=== PATIENT | male | born 1985 | race Hispanic/Latino ===

== ENCOUNTER 2018-05-10 23:03 | Emergency (ER) | payer BC, SELFPAY ==
[2018-05-11 00:25] LABS: Absolute Lymphocytes (CBC) 2.2 K/uL (0.7-4.9); Absolute Neutrophil 8.2 K/uL (1.8-8.0); Basophils % 0.3 % (0-1.3); Eosinophils % 1.8 % (0-4.4); Hematocrit 39.6 % (39.6-49.0); Lymphocytes % 18.6 % (15.3-44.8); MCH 30.5 pg (27.0-35.0); MCV 87.9 fL (80-100); MPV 9.1 fL (7.6-11.3); Monocytes % 8.9 % (3.3-12.3); RBC Red Blood Cell Count 4.51 M/uL (4.33-5.43)
[2018-05-11 00:27] LABS: Urine Blood NEGATIVE (NEG); Urine Glucose NEGATIVE (NEG); Urine Protein NEGATIVE (NEG)
[2018-05-11 00:42] LABS: ALT/SGPT 26 U/L (12-78); AST/SGOT 17 U/L (15-37); Albumin 3.4 g/dL (3.4-5.0); Alkaline Phosphatase 80 U/L (45-117); BUN Blood Urea Nitrogen 13 mg/dL (7-18); Bicarbonate 26 mmol/L (21-32); Bilirubin Direct 0.1 mg/dL (0-0.2); Bilirubin Total 0.5 mg/dL (0.2-1.0); Glucose Level 95 mg/dL (74-106); Potassium 3.7 mmol/L (3.5-5.1); Protein, Total 7.6 g/dL (6.4-8.2); Sodium Level 140 mmol/L (136-145); Troponin (Emerg Dept Use Only) < 0.02 ng/mL (0.0-0.045)
--- NOTE | 2018-05-11 00:51 | ER ---
Nurse's Notes [facility] Name: Tom Saez Age: 32 yrs Sex: Male : 1985 Arrival Date: 05/10/2018 Time: 23:06 Bed 13 Private MD: Monae Gallardo H Diagnosis: Other viral warts-right 5th finger, vega;Carpal tunnel syndrome;Carpal tunnel syndrome, right upper limb Presentation: 05/10 23:10 Presenting complaint: Patient states: large wart to right pinkie finger, started tl3 bleeding on Halloween night, used compression to stop bleeding then started putting wart strips on it, has been putting compound W on it all week, now feels tingling, states that wart has only been there for one month. Transition of care: patient was not received from another setting of care. Onset of symptoms is unknown. Risk Assessment: Do you want to hurt yourself or someone else? Patient reports no desire to harm self or others. Initial Sepsis Screen: Does the patient meet any 2 criteria? No. Patient's initial sepsis screen is negative. Does the patient have a suspected source of infection? No. Patient's initial sepsis screen is negative. Care prior to arrival: None. 23:10 Method Of Arrival: Ambulatory tl3 23:10 Acuity: APOLLO 4 tl3 Triage Assessment: 23:10 General: Appears in no apparent distress. Behavior is calm, cooperative, appropriate tl3 for age. Pain: Complains of pain in palmar aspect of middle phalanx of right little finger Pain currently is 7 out of 10 on a pain scale. Historical: - Allergies: 23:09 No Known Allergies; tl3 - PSHx: 23:09 None; tl3 - Immunization history:: Adult Immunizations up to date, Adult Immunizations Flu vaccine is up to date. - Social history:: Smoking status: Patient/guardian denies using tobacco, never smoked. - Ebola Screening: : No symptoms or risks identified at this time. - Family history:: not pertinent. Screenin:20 Abuse screen: Denies threats or abuse. Denies injuries from another. Nutritional cc3 screening: No deficits noted. Tuberculosis screening: No symptoms or risk factors identified. Fall Risk Ambulatory Aid- None/Bed Rest/Nurse Assist (0 pts). Gait- Normal/Bed Rest/Wheelchair (0 pts) Mental Status- Oriented to own ability (0 pts). Assessment: 23:20 General: see triage assessment. cc3 05/11 00:25 Reassessment: Splint applied on the right wrist as ordered, patient tolerated. cc3 00:50 Reassessment: Patient appears in no apparent distress at this time. Patient and/or cc3 family updated on plan of care and expected duration. Pain level reassessed. Patient is alert, oriented x 3, equal unlabored respirations, skin warm/dry/pink. Patient came back from CT scan department. 01:10 Reassessment: Patient appears in no apparent distress at this time. Patient and/or cc3 family updated on plan of care and expected duration. Pain level reassessed. Patient is alert, oriented x 3, equal unlabored respirations, skin warm/dry/pink. Dr. Allen discharged the patient with prescriptions and discharge instructions given. IV cannula removed and patient left ER vitally stable and ambulatory with his family. Vital Signs: 05/10 23:10 BP 132 / 87; Pulse 86; Resp 18; Temp 97.6(O); Pulse Ox 98% ; Weight 131.54 kg; Height 5 tl3 ft. 5 in. (165.10 cm); 05/11 00:20 BP 120 / 81; Pulse 83; Resp 19 S; Pulse Ox 98% on R/A; cc3 01:00 BP 122 / 84; Pulse 85; Resp 18 S; Pulse Ox 98% on R/A; cc3 05/10 23:10 Body Mass Index 48.26 (131.54 kg, 165.10 cm) tl3 ED Course: 05/10 23:06 Patient arrived in ED. am2 23:06 Monae Gallardo DO is Private Physician. am2 23:14 Triage completed. tl3 23:20 Arm band placed on right wrist. cc3 23:20 Patient has correct armband on for positive identification. Bed in low position. Call cc3 light in reach. Side rails up X 1. night monitor on. Pulse ox on. NIBP on. 23:28 Luis Angel Allen MD is Attending Physician. [facility] 23:46 Nati Whitley is Primary Nurse. cc3 23:55 Inserted saline lock: 20 gauge in left antecubital area, using aseptic technique. Blood cc3 collected. 1106 00:17 X-ray completed. Portable x-ray completed in exam room. Patient tolerated procedure kw well. 00:18 XRAY Chest (1 view) In Process Unspecified. EDMS 00:[address] via wheelchair. kw1 00:44 CT Head C Spine In Process Unspecified. EDMS 00:45 CT completed. Patient tolerated procedure well. Patient moved back from CT. kw1 00:49 Monae Gallardo DO is Referral Physician. dory 01:10 No provider procedures requiring assistance completed. IV discontinued, intact, cc3 bleeding controlled, No redness/swelling at site. Pressure dressing applied. Administered Medications: No medications were administered Outcome: 00:50 Discharge ordered by . dory 01:10 Discharged to home ambulatory, with family. cc3 01:10 Condition: stable 01:10 Discharge instructions given to patient, family, Instructed on discharge instructions, follow up and referral plans. medication usage, Demonstrated understanding of instructions, follow-up care, medications, Prescriptions given X 2. 01:13 Patient left the ED. cc3 Signatures: Dispatcher [employer] Luis Angel Sellers MD MD cha Whitley, Kimberlee kw Moreno, Amanda am2 Wilhelm, Kimberly kw1 Mary Calderon, MC RN tl3 Nati Whitley cc3
--- NOTE | 2018-05-11 00:51 | EDPHYS ---
Physician Documentation [facility] Name: Tom Saez Age: 32 yrs Sex: Male : 1985 Arrival Date: 05/10/2018 Time: 23:06 Bed 13 Private MD: Monae Gallardo H ED Physician Luis Angel Allen HPI: 05/10 23:42 This 32 yrs old Male presents to ER via Ambulatory with complaints of Finger dory pain/wart. 23:42 The patient or guardian complains of pain. The complaints affect the right bicep, dory dorsal aspect of right forearm, right tricep and palmar aspect of right forearm. Context: The problem was sustained at home. Onset: The symptoms/episode began/occurred 2 day(s) ago. Modifying factors: The symptoms are alleviated by nothing. the symptoms are aggravated by nothing. Associated signs and symptoms: The patient has no apparent associated signs or symptoms. Historical: - Allergies: 23:09 No Known Allergies; tl3 - PSHx: 23:09 None; tl3 - Immunization history:: Adult Immunizations up to date, Adult Immunizations Flu vaccine is up to date. - Social history:: Smoking status: Patient/guardian denies using tobacco, never smoked. - Ebola Screening: : No symptoms or risks identified at this time. - Family history:: not pertinent. ROS: 23:42 Constitutional: Negative for fever, chills, and weight loss, Eyes: Negative for injury, dory pain, redness, and discharge, ENT: Negative for injury, pain, and discharge, Neck: Negative for injury, pain, and swelling, Cardiovascular: Negative for chest pain, palpitations, and edema, Respiratory: Negative for shortness of breath, cough, wheezing, and pleuritic chest pain, Abdomen/GI: Negative for abdominal pain, nausea, vomiting, diarrhea, and constipation, Back: Negative for injury and pain, : Negative for injury, bleeding, discharge, and swelling, MS/Extremity: Negative for injury and deformity, Psych: Negative for depression, anxiety, suicide ideation, homicidal ideation, and hallucinations, Allergy/Immunology: Negative for hives, rash, and allergies, Endocrine: Negative for neck swelling, polydipsia, polyuria, polyphagia, and marked weight changes, Hematologic/Lymphatic: Negative for swollen nodes, abnormal bleeding, and unusual bruising. 23:42 Skin: Positive for wart right finger. 23:42 Neuro: Positive for tingling, of the right arm. Exam: 23:42 Constitutional: This is a well developed, well nourished patient who is awake, alert, dory and in no acute distress. Head/Face: Normocephalic, atraumatic. Eyes: Pupils equal round and reactive to light, extra-ocular motions intact. Lids and lashes normal. Conjunctiva and sclera are non-icteric and not injected. Cornea within normal limits. Periorbital areas with no swelling, redness, or edema. ENT: Nares patent. No nasal discharge, no septal abnormalities noted. Tympanic membranes are normal and external auditory canals are clear. Oropharynx with no redness, swelling, or masses, exudates, or evidence of obstruction, uvula midline. Mucous membranes moist. Neck: Trachea midline, no thyromegaly or masses palpated, and no cervical lymphadenopathy. Supple, full range of motion without nuchal rigidity, or vertebral point tenderness. No Meningismus. Chest/axilla: Normal chest wall appearance and motion. Nontender with no deformity. No lesions are appreciated. Cardiovascular: Regular rate and rhythm with a normal S1 and S2. No gallops, murmurs, or rubs. Normal PMI, no JVD. No pulse deficits. Respiratory: Lungs have equal breath sounds bilaterally, clear to auscultation and percussion. No rales, rhonchi or wheezes noted. No increased work of breathing, no retractions or nasal flaring. Abdomen/GI: Soft, non-tender, with normal bowel sounds. No distension or tympany. No guarding or rebound. No evidence of tenderness throughout. Back: No spinal tenderness. No costovertebral tenderness. Full range of motion. Male : Normal genitalia with no discharge or lesions. Skin: Warm, dry with normal turgor. Normal color with no rashes, no lesions, and no evidence of cellulitis. MS/ Extremity: Pulses equal, no cyanosis. Neurovascular intact. Full, normal range of motion. Neuro: Awake and alert, GCS 15, oriented to person, place, time, and situation. Cranial nerves II-XII grossly intact. Motor strength 5/5 in all extremities. Sensory grossly intact. Cerebellar exam normal. Normal gait. Psych: Awake, alert, with orientation to person, place and time. Behavior, mood, and affect are within normal limits. Vital Signs: 23:10 BP 132 / 87; Pulse 86; Resp 18; Temp 97.6(O); Pulse Ox 98% ; Weight 131.54 kg; Height 5 tl3 ft. 5 in. (165.10 cm); 05/11 00:20 BP 120 / 81; Pulse 83; Resp 19 S; Pulse Ox 98% on R/A; cc3 01:00 BP 122 / 84; Pulse 85; Resp 18 S; Pulse Ox 98% on R/A; cc3 05/10 23:10 Body Mass Index 48.26 (131.54 kg, 165.10 cm) tl3 MDM: 05/10 23:28 Patient medically screened. [facility] 23:44 Data reviewed: vital signs, nurses notes, lab test result(s), EKG, radiologic studies, dory plain films. 05/10 23:42 Order name: Basic Metabolic Panel; Complete Time: 00:49 [facility] 05/10 23:42 Order name: CBC with Diff; Complete Time: 00:49 [facility] 05/10 23:42 Order name: LFT's; Complete Time: 00:49 [facility] 05/10 23:42 Order name: Magnesium; Complete Time: 00:49 [facility] 05/10 23:42 Order name: Troponin (emerg Dept Use Only); Complete Time: 00:49 [facility] 05/11 00:21 Order name: Urine Dipstick--Ancillary (enter results); Complete Time: 00:49 nd 05/10 23:42 Order name: EKG; Complete Time: 23:42 [facility] 05/10 23:42 Order name: EKG - Nurse/Tech; Complete Time: 00:26 [facility] 05/10 23:42 Order name: XRAY Chest (1 view) [facility] 05/10 23:42 Order name: Cardiac monitoring; Complete Time: 23:47 [facility] 05/10 23:42 Order name: IV Saline Lock; Complete Time: 00:25 [facility] 05/10 23:42 Order name: Labs collected and sent; Complete Time: 00:25 [facility] 05/10 23:42 Order name: O2 Per Protocol; Complete Time: 23:47 [facility] 05/10 23:42 Order name: CT Head C Spine [facility] 05/10 23:42 Order name: O2 Sat Monitoring; Complete Time: 23:47 [facility] 05/10 23:42 Order name: Urine Dipstick-Ancillary (obtain specimen); Complete Time: 00:25 [facility] 05/10 23:46 Order name: Splint - Wrist: cock up split; Complete Time: 00:25 [facility] Administered Medications: No medications were administered Disposition: 05/11/18 00:50 Discharged to Home. Impression: Other viral warts - right 5th finger, vega, Carpal tunnel syndrome, Carpal tunnel syndrome, right upper limb. - Condition is Stable. - Discharge Instructions: Carpal Tunnel Syndrome, Warts, Warts, [id number], Carpal Tunnel Syndrome, [id number]. - Prescriptions for Ibuprofen 600 mg Oral Tablet - take 1 tablet by ORAL route every 8 hours As needed take with food; 20 tablet. Tylenol- Codeine #3 300-30 mg Oral Tablet - take 2 tablets by ORAL route every 6 hours As needed; 20 tablet. - Medication Reconciliation Form, Thank You Letter, Antibiotic Education, Prescription Opioid Use form. - Follow up: Monae Gallardo; When: 2 - 3 days; Reason: Recheck today's complaints, Continuance of care, Re-evaluation by your physician. - Problem is new. - Symptoms have improved. Signatures: Dispatcher [employer] EDMS Luis Angel Allen MD MD cha Lowrey, Tammy, RN RN tl3 Nati Whitley cc3 Corrections: (The following items were deleted from the chart) 05/11 01:13 00:50 05/11/2018 00:50 Discharged to Home. Impression: Other viral warts - right 5th cc3 finger, vega; Carpal tunnel syndrome; Carpal tunnel syndrome, right upper limb. Condition is Stable. Discharge Instructions: Carpal Tunnel Syndrome, Warts, Warts, [id number], Carpal Tunnel Syndrome, [id number]. Prescriptions for Ibuprofen 600 mg Oral Tablet - take 1 tablet by ORAL route every 8 hours As needed take with food; 20 tablet, Tylenol-Codeine #3 300-30 mg Oral Tablet - take 2 tablets by ORAL route every 6 hours As needed; 20 tablet. and Forms are Medication Reconciliation Form, Thank You Letter, Antibiotic Education, Prescription Opioid Use. Follow up: Monae Gallardo; When: 2 - 3 days; Reason: Recheck today's complaints, Continuance of care, Re-evaluation by your physician. Problem is new. Symptoms have improved. dory
--- NOTE | 2018-05-11 06:47 | RAD REPORT ---
EXAM DESCRIPTION: CT - [id number] - 05/11/2018 4:14 am CLINICAL HISTORY: Right upper extremity numbness and tingling, neck pain A preliminary report was provided at the time of the study and reviewed prior to final report. COMPARISON: None. TECHNIQUE: Axial 5 mm thick images of the head were obtained. Axial 2 mm thick images of the cervic al spine were obtained with sagittal and coronal reconstruction images generated and reviewed. All CT scans are performed using dose optimization technique as appropriate and may include automated exposure control or mA/KV adjustment according to patient size. FINDINGS: No intracranial hemorrhage, mass, edema or acute intracranial finding. No suspicion for acute infarct ion. No extra-axial fluid collections. Mastoid air cells and paranasal sinuses are clear. No globe or orbit abnormality seen. Cervical body height and alignment are normal. No disk space narrowing. No fracture or acute bony abn ormality. No paraspinal mass or hematoma. IMPRESSION: Negative CT head examination for acute or significant finding. Negative CT cervical spine examination for acute or significant finding.
--- NOTE | 2018-05-11 08:46 | RAD REPORT ---
EXAM DESCRIPTION: RAD - Chest Single View - 05/11/2018 12:19 am CLINICAL HISTORY: Cough COMPARISON: April 02 TECHNIQUE: AP portable chest image was obtained 0010 hours . FINDINGS: No focal lung parenchymal process. Heart size and central vasculature have increased fract ionally from the prior study. Trachea is midline. No measurable pleural effusion and no pneumothorax. No acute bony abnormality seen. No acute aortic findings suspected. IMPRESSION: No focal mass or consolidation. Slight increase in central vasculature and heart size since April 02. Change is minimal but patie nt can be monitored for failure/ volume overload.
--- NOTE | 2018-05-11 12:19 | EKG ---
Test Date: 2018-05-11 Test Time: 00:03:00 Senior Lead Project Manager: DOLLY MEASUREMENT RESULTS: Intervals: Rate: 80 HI: 142 QRSD: 100 QT: 376 QTc: 433 Rueter: P: 17 HI: 142 QRS: 10 T: 15 INTERPRETIVE STATEMENTS: Normal sinus rhythm Normal ECG Compared to ECG 04/02/2016 17:11:53 No significant changes Electronically Signed On 05-11-18 12:17:54 STRUCTURAL DESIGN ENGINEER by Vamsi Holly
== END 2018-05-11 01:13 | disposition home or self-care (01) ==
LOC: ER 23:03
DX: G56.01 Carpal tunnel syndrome, right upper limb (principal); B07.8 Other viral warts
CPT/HCPCS: 36415; 70450; 71045; 72125; 80048; 80076; 81003; 83735; 84484; 85025; 93005; 99285

== ENCOUNTER 2019-01-11 13:54 | Inpatient (IN) | payer SELFPAY ==
[2019-01-11 15:21] LABS: Absolute Lymphocytes (CBC) 1.2 K/uL (0.7-4.9); Basophils % 0.4 % (0-1.3); Eosinophils % 0.1 % (0-4.4); Hematocrit 42.4 % (39.6-49.0); Lymphocytes % 13.4 % (15.3-44.8); MPV 8.2 fL (7.6-11.3); Monocytes % 7.1 % (3.3-12.3); RBC Red Blood Cell Count 4.82 M/uL (4.33-5.43)
[2019-01-11 15:34] LABS: Protime INR 1.23
[2019-01-11 15:53] LABS: ALT/SGPT 31 U/L (12-78); AST/SGOT 18 U/L (15-37); Albumin 3.2 g/dL (3.4-5.0); Alkaline Phosphatase 76 U/L (45-117); BUN Blood Urea Nitrogen 9 mg/dL (7-18); Bicarbonate 25 mmol/L (21-32); Bilirubin Direct < 0.1 mg/dL (0-0.2); Bilirubin Total 0.2 mg/dL (0.2-1.0); Glucose Level 107 mg/dL (74-106); Lipase 5277 U/L (73-393); Potassium 3.8 mmol/L (3.5-5.1); Protein, Total 7.8 g/dL (6.4-8.2); Sodium Level 139 mmol/L (136-145)
[2019-01-11] MEDS ORDERED: MORPHINE 4 MG/ML SYR ONE (16:43)
[2019-01-11] MEDS ORDERED: NA CHLORIDE 0.9% 1,000 ML ONE ×3 (16:43→20:17)
[2019-01-11] MEDS ORDERED: ONDANSETRON 4 MG/2 ML VIAL ONE (16:43)
--- NOTE | 2019-01-11 18:13 | RAD REPORT ---
EXAM DESCRIPTION: CT - Abdomen Pelvis W Contrast - 01/11/2019 6:03 pm CLINICAL HISTORY: Abdominal pain, diarrhea COMPARISON: None. TECHNIQUE: Biphasic, helical CT imaging of the abdomen and pelvis was performed following 100 ml non -ionic IV contrast. Oral contrast was given. All CT scans are performed using dose optimization technique as appropriate and may include automated exposure control or mA/KV adjustment according to patient size. FINDINGS: No suspicious findings in the lung bases. Liver shows fatty infiltration pattern. No focal liver abnormality. Spleen and pancreas unremarkable. Gallbladder and biliary tree are also without suspicious finding. Symmetric renal function is seen with no hydronephrosis or suspicious renal mass. No pyelonephritis o r acute parenchymal process. No bladder abnormalities. No adrenal abnormalities. No gastric dilatation or gastric wall thickening. No small bowel abnormality. The appendix is normal. Gudino of the colon are mildly prominent. There is a minimal amount of stranding in the fatty tissues adjacent to the redundant sigmoid colon. No free air, free fluid or pneumatosis. No hernia, mass o r bulky lymphadenopathy. Small nonspecific mesenteric lymph nodes present. No suspicious bony findings. IMPRESSION: Mild nonspecific colitis pattern. A few small mesenteric lymph nodes are present. No obstruction, free air or surgically emergent finding.
[2019-01-11 19:11] LABS: Urine Blood NEGATIVE (NEG); Urine Glucose NEGATIVE (NEG); Urine Protein NEGATIVE (NEG); Urine Specific Gravity 1.015 (1.005-1.030); Urine pH 5.5 (5.0-7.0)
--- NOTE | 2019-01-11 19:19 | ER ---
Nurse's Notes [facility] Name: Tom Saez Age: 33 yrs Sex: Male : 1985 Arrival Date: 01/11/2019 Time: 13:57 Bed 18 Private MD: Monae Gallardo H Diagnosis: Colitis;Acute pancreatitis Presentation: 01/11 14:01 Presenting complaint: Patient states: DIFFUSE ABDOMINAL PAIN AND DIARRHEA x3 DAYS. bp Transition of care: patient was not received from another setting of care. Onset of symptoms is unknown. Risk Assessment: Do you want to hurt yourself or someone else? Patient reports no desire to harm self or others. Initial Sepsis Screen: Does the patient meet any 2 criteria? HR > 90 bpm. No. Patient's initial sepsis screen is negative. Does the patient have a suspected source of infection? No. Patient's initial sepsis screen is negative. Care prior to arrival: None. 14:01 Method Of Arrival: Ambulatory bp 14:01 Acuity: APOLLO 3 bp Historical: - Allergies: 14:02 No Known Allergies; bp - Home Meds: 14:02 None [Active]; bp - PMHx: 14:02 None; bp - PSHx: 14:02 None; bp - Immunization history:: Adult Immunizations up to date. - Social history:: Smoking status: Patient/guardian denies using tobacco. - Ebola Screening: : No symptoms or risks identified at this time. Screenin:22 Abuse screen: Denies threats or abuse. Nutritional screening: No deficits noted. tr5 Tuberculosis screening: No symptoms or risk factors identified. Fall Risk No fall in past 12 months (0 pts). No secondary diagnosis (0 pts). IV access (20 points). Ambulatory Aid- None/Bed Rest/Nurse Assist (0 pts). Gait- Normal/Bed Rest/Wheelchair (0 pts) Mental Status- Oriented to own ability (0 pts). Assessment: 14:50 General: Appears uncomfortable, obese, Behavior is calm, cooperative. Pain: Complains tr5 of pain in abdomen Pain does not radiate. Neuro: Level of Consciousness is awake, alert, Oriented to person, place, time, Oracle Database Manager are equal bilaterally Moves all extremities. Cardiovascular: Heart tones present Bruits absent Capillary refill < 3 seconds Pulses are all present. Edema is absent. Respiratory: Airway is patent Trachea midline Breath sounds are clear bilaterally. GI: Bowel sounds present X 4 quads. Abd is soft X 4 quads. : No signs and/or symptoms were reported regarding the genitourinary system. EENT: No signs and/or symptoms were reported regarding the EENT system. Derm: Skin is healthy with good turgor, Skin is dry, Skin is pink, warm \T\ dry. Musculoskeletal: Capillary refill < 3 seconds, Range of motion: intact in all extremities. 16:00 Reassessment: Patient and/or family updated on plan of care and expected duration. Pain tr5 level reassessed. Patient is alert, oriented x 3, equal unlabored respirations, skin warm/dry/pink. 17:00 Reassessment: Patient and/or family updated on plan of care and expected duration. Pain tr5 level reassessed. Patient states feeling better. Patient states symptoms have improved. 20:51 Reassessment: Patient appears in no apparent distress at this time. Patient and/or aa1 family updated on plan of care and expected duration. Pain level reassessed. Patient is alert, oriented x 3, equal unlabored respirations, skin warm/dry/pink. Dr. Torres at bedside. 21:57 Reassessment: Patient appears in no apparent distress at this time. Patient and/or aa1 family updated on plan of care and expected duration. Pain level reassessed. Patient is alert, oriented x 3, equal unlabored respirations, skin warm/dry/pink. Report given to MC Damian on 2nd floor. Vital Signs: 14:02 BP 136 / 71; Pulse 130; Resp 20; Temp 97.6; Pulse Ox 97% on R/A; Weight 127.01 kg; bp Height 5 ft. 5 in. (165.10 cm); 15:00 BP 128 / 70; Pulse 100; Resp 16; Pulse Ox 99% on R/A; tr5 20:00 BP 148 / 82; Pulse 86; Resp 16; Temp 97.5; Pulse Ox 97% on R/A; aa1 21:00 BP 142 / 79; Pulse 87; Resp 16; Pulse Ox 97% on R/A; aa1 21:57 BP 140 / 79; Pulse 84; Resp 16; Temp 97.9; Pulse Ox 97% on R/A; aa1 14:02 Body Mass Index 46.59 (127.01 kg, 165.10 cm) bp ED Course: 13:57 Patient arrived in ED. mr 13:57 Monae Gallardo DO is Private Physician. mr 14:01 Abraham Cuenca, MC is Primary Nurse. tr5 14:01 Triage completed. bp 14:02 Arm band placed on right wrist. bp 14:04 Luis Angel Lewis PA is PHCP. cp 14:04 Luis Angel Allen MD is Attending Physician. cp 15:00 Inserted saline lock: 20 gauge in right antecubital area, using aseptic technique. tr5 15:23 Patient has correct armband on for positive identification. Bed in low position. Call tr5 light in reach. 18:05 CT Abd/Pelvis - PO and IV Contrast In Process Unspecified. EDMS 19:12 Report given to Mary BENTLEY. tr5 19:18 Rosamaria Wren MD is Hospitalizing Provider. cp 19:58 US Abdomen Limited: upper abdomen In Process Unspecified. EDMS 21:59 No provider procedures requiring assistance completed. Patient admitted, IV remains in aa1 place. Administered Medications: 16:39 Drug: Zofran 4 mg Route: IVP; Site: right antecubital; tr5 17:10 Follow up: Response: Nausea is decreased tr5 16:40 Drug: NS 0.9% 1000 ml Route: IV; Rate: 1 bolus; Site: right antecubital; tr5 18:13 Follow up: Response: No adverse reaction; IV Status: Completed infusion tr5 16:40 Drug: morphine 4 mg Route: IVP; Site: right antecubital; tr5 17:10 Follow up: Response: Pain is decreased tr5 18:53 Drug: NS 0.9% 1000 ml Route: IV; Rate: 1 bolus; Site: right antecubital; tr5 19:54 Follow up: IV Status: Completed infusion; IV Intake: 1000ml aa1 20:14 Drug: NS 0.9% 1000 ml Route: IV; Rate: 125 ml/hr; Site: right antecubital; aa1 20:51 Follow up: IV Status: Infusion continued upon admission aa1 20:14 Drug: Ciprofloxacin 400 mg Volume: 200 ml; Route: IVPB; Infused Over: 60 mins; Site: aa1 right antecubital; 20:14 Drug: metroNIDAZOLE 500 mg Volume: 100 ml; Route: IVPB; Infused Over: 30 mins; Site: aa1 right antecubital; 20:49 Follow up: IV Status: Completed infusion aa1 Intake: 19:54 IV: 1000ml; Total: 1000ml. aa1 Outcome: 19:19 Decision to Hospitalize by Provider. cp 22:49 Patient left the ED. aa1 Signatures: Dispatcher [employer] Mary Bennett RN RN aa1 Tanisha Stockton mr Luis Angel Lewis, PA PA cp Glen Brower RN RN bp Rodriguez, Tommie, RN RN tr5 Corrections: (The following items were deleted from the chart) 15:29 15:29 Inserted saline lock: 20 gauge in right antecubital area, using aseptic tr5 technique. tr5
--- NOTE | 2019-01-11 19:20 | EDPHYS ---
Physician Documentation [facility] Name: Tom Saez Age: 33 yrs Sex: Male : 1985 Arrival Date: 01/11/2019 Time: 13:57 Bed 18 Private MD: Monae Gallardo H ED Physician Luis Angel Allen HPI: 01/11 14:40 This 33 yrs old Male presents to ER via Ambulatory with complaints of cp Abdominal Pain, Diarrhea. 14:40 The patient presents with abdominal pain that is diffuse. Onset: The symptoms/episode cp began/occurred 3 day(s) ago. Associated signs and symptoms: Pertinent positives: blood in stools, diarrhea, nausea, Pertinent negatives: constipation, dysuria, fever, testicular pain, vomiting, vomiting blood. The symptoms are described as constant. Severity of pain: in the emergency department the pain is unchanged despite home interventions. Historical: - Allergies: 14:02 No Known Allergies; bp - Home Meds: 14:02 None [Active]; bp - PMHx: 14:02 None; bp - PSHx: 14:02 None; bp - Immunization history:: Adult Immunizations up to date. - Social history:: Smoking status: Patient/guardian denies using tobacco. - Ebola Screening: : No symptoms or risks identified at this time. ROS: 14:47 Constitutional: Negative for body aches, chills, fever, poor PO intake. cp 14:47 Eyes: Negative for injury, pain, redness, and discharge. cp 14:47 ENT: Negative for drainage from ear(s), ear pain, sore throat, difficulty swallowing, difficulty handling secretions. 14:47 Cardiovascular: Negative for chest pain, edema, palpitations. 14:47 Respiratory: Negative for cough, shortness of breath, wheezing. 14:47 Abdomen/GI: Positive for abdominal pain, nausea, diarrhea, anorexia, rectal bleeding, Negative for vomiting, constipation, black/tarry stool. 14:47 Back: Negative for pain at rest, pain with movement, radiated pain. 14:47 : Negative for urinary symptoms. 14:47 Skin: Negative for rash. 14:47 Neuro: Negative for altered mental status, dizziness, headache, weakness. 14:47 All other systems are negative. Exam: 14:55 Constitutional: The patient appears in no acute distress, alert, awake, cp non-diaphoretic, non-toxic, well developed, well nourished, obese. 14:55 Head/Face: Normocephalic, atraumatic. Eyes: Pupils equal round and reactive to light, cp extra-ocular motions intact. Lids and lashes normal. Conjunctiva and sclera are non-icteric and not injected. Cornea within normal limits. Periorbital areas with no swelling, redness, or edema. ENT: Nares patent. No nasal discharge, no septal abnormalities noted. Tympanic membranes are normal and external auditory canals are clear. Oropharynx with no redness, swelling, or masses, exudates, or evidence of obstruction, uvula midline. Mucous membranes moist. Chest/axilla: Normal chest wall appearance and motion. Nontender with no deformity. No lesions are appreciated. 14:55 Cardiovascular: Rate: tachycardic, Rhythm: regular, Edema: is not appreciated, JVD: is not appreciated. 14:55 Respiratory: the patient does not display signs of respiratory distress, Respirations: normal, no use of accessory muscles, no retractions, no tachypnea, labored breathing, is not present, Breath sounds: are clear throughout, no decreased breath sounds, no stridor, no wheezing. 14:55 Abdomen/GI: Inspection: obese Bowel sounds: active, all quadrants, Palpation: soft, in all quadrants, moderate abdominal tenderness, in all quadrants, voluntary guarding, is elicited in all quadrants, involuntary guarding, is not appreciated, Rectal exam: Stool: brown, guaiac positive. 14:55 Back: pain, is absent, ROM is normal. 14:55 Skin: no rash present. Vital Signs: 14:02 BP 136 / 71; Pulse 130; Resp 20; Temp 97.6; Pulse Ox 97% on R/A; Weight 127.01 kg; bp Height 5 ft. 5 in. (165.10 cm); 15:00 BP 128 / 70; Pulse 100; Resp 16; Pulse Ox 99% on R/A; tr5 20:00 BP 148 / 82; Pulse 86; Resp 16; Temp 97.5; Pulse Ox 97% on R/A; aa1 21:00 BP 142 / 79; Pulse 87; Resp 16; Pulse Ox 97% on R/A; aa1 21:57 BP 140 / 79; Pulse 84; Resp 16; Temp 97.9; Pulse Ox 97% on R/A; aa1 14:02 Body Mass Index 46.59 (127.01 kg, 165.10 cm) bp MDM: 14:04 Patient medically screened. dory 19:00 Data reviewed: vital signs, nurses notes, lab test result(s), radiologic studies, CT cp scan. 19:00 Counseling: I had a detailed discussion with the patient and/or guardian regarding: the cp historical points, exam findings, and any diagnostic results supporting the discharge/admit diagnosis, lab results, radiology results, the need for further work-up and treatment in the hospital. 19:30 Physician consultation: Rosamaria Wren MD was called at 19:05, was contacted at 19:30, regarding admission, to the medical/surgical unit. patient's condition, would like further tests performed, ultrasound of liver/gallbladder. 01/11 14:33 Order name: Basic Metabolic Panel; Complete Time: 16:22 cp 01/11 16:23 Interpretation: Normal except: GLUC 107. 01/11 14:33 Order name: CBC with Diff 01/11 14:33 Order name: Creatinine for Radiology; Complete Time: 16:22 cp 01/11 14:33 Order name: Hepatic Function; Complete Time: 16:22 cp 01/11 16:23 Interpretation: Normal except: ALB 3.2; GLOB 4.6; A/G 0.7. cp 01/11 14:33 Order name: Lipase; Complete Time: 16:22 cp 01/11 16:23 Interpretation: Abnormal: LIP 5277. cp 01/11 14:33 Order name: PT-INR; Complete Time: 16:22 cp 01/11 18:38 Interpretation: Abnormal: PT 14.4. cp 01/11 14:33 Order name: Ptt, Activated; Complete Time: 16:22 cp 01/11 14:33 Order name: Magnesium; Complete Time: 16:22 cp 01/11 14:38 Order name: CT Abd/Pelvis - PO and IV Contrast; Complete Time: 18:35 cp 01/11 14:44 Order name: CDIFF cp 01/11 14:44 Order name: Stool Culture 01/11 15:25 Order name: CBC with Automated Diff; Complete Time: 16:22 EDMS 01/11 16:23 Interpretation: Normal except: TRANG% 79.0; LYM% 13.4. cp 01/11 16:24 Order name: UDS; Complete Time: 19:30 cp 01/11 19:04 Order name: Urine Dipstick--Ancillary (enter results); Complete Time: 19:17 ms 01/11 14:33 Order name: IV Saline Lock; Complete Time: 15:23 cp 01/11 14:33 Order name: Labs collected and sent; Complete Time: 15:23 cp 01/11 18:55 Order name: NPO; Complete Time: 19:53 cp 01/11 19:31 Order name: US Abdomen Limited: upper abdomen; Complete Time: 20:43 cp Administered Medications: 16:39 Drug: Zofran 4 mg Route: IVP; Site: right antecubital; tr5 17:10 Follow up: Response: Nausea is decreased tr5 16:40 Drug: NS 0.9% 1000 ml Route: IV; Rate: 1 bolus; Site: right antecubital; tr5 18:13 Follow up: Response: No adverse reaction; IV Status: Completed infusion tr5 16:40 Drug: morphine 4 mg Route: IVP; Site: right antecubital; tr5 17:10 Follow up: Response: Pain is decreased tr5 18:53 Drug: NS 0.9% 1000 ml Route: IV; Rate: 1 bolus; Site: right antecubital; tr5 19:54 Follow up: IV Status: Completed infusion; IV Intake: 1000ml aa1 20:14 Drug: NS 0.9% 1000 ml Route: IV; Rate: 125 ml/hr; Site: right antecubital; aa1 20:51 Follow up: IV Status: Infusion continued upon admission aa1 20:14 Drug: Ciprofloxacin 400 mg Volume: 200 ml; Route: IVPB; Infused Over: 60 mins; Site: aa1 right antecubital; 20:14 Drug: metroNIDAZOLE 500 mg Volume: 100 ml; Route: IVPB; Infused Over: 30 mins; Site: aa1 right antecubital; 20:49 Follow up: IV Status: Completed infusion aa1 Disposition: 01/12 16:33 Co-signature as Attending Physician, Luis Angel OLIVA I agree with the assessment and dory plan of care. Disposition: 01/11/19 19:19 Hospitalization ordered by Rosamaria Wren for Inpatient Admission. Preliminary diagnosis are Colitis, Acute pancreatitis. - Bed requested for Telemetry/MedSurg (Inpatient). - Status is Inpatient Admission. aa1 - Condition is Stable. - Problem is new. - Symptoms have improved. UTI on Admission? No Signatures: Dispatcher [employer] EDOH Gisella Collier RN RN Mary Velásquez RN RN aa1 Luis Angel Allen MD MD cha Nieto, Roman, MD MD rn Page, Corey, PA PA cp Peltier, Brian, RN RN bp Rodriguez, Tommie, RN RN tr5 Corrections: (The following items were deleted from the chart) 01/11 15:36 15:26 Abdomen ordered. [facility] ED[facility] 21:21 19:19 Hospitalization Ordered by Rosamaria Wren MD for Inpatient Admission. Preliminary diagnosis is Colitis; Acute pancreatitis. Bed requested for Telemetry/MedSurg (Inpatient). Status is Inpatient Admission. Condition is Stable. Problem is new. Symptoms have improved. UTI on Admission? No. 22:49 21:21 01/11/2019 19:19 Hospitalization Ordered by Rosamaria Wren MD for Inpatient aa1 Admission. Preliminary diagnosis is Colitis; Acute pancreatitis. Bed requested for Telemetry/MedSurg (Inpatient). Status is Inpatient Admission. Condition is Stable. Problem is new. Symptoms have improved. UTI on Admission? No. mw
[2019-01-11 19:24] LABS: Barbiturates NEGATIVE (NEGATIVE); Benzodiazepines NEGATIVE (NEGATIVE); Cocaine NEGATIVE (NEGATIVE); METHAMPHETAM NEGATIVE (NEGATIVE); Methadone NEGATIVE (NEGATIVE); Opiates POSITIVE (NEGATIVE); Phencyclidine NEGATIVE (NEGATIVE); THC Cannibis NEGATIVE (NEGATIVE)
--- NOTE | 2019-01-11 20:03 | RAD REPORT ---
EXAM DESCRIPTION: US - Abdomen Exam Limited - 01/11/2019 7:58 pm CLINICAL HISTORY: Abdominal pain, pancreatitis COMPARISON: CT study January 11 FINDINGS: No gallstones, sludge or other abnormalities within the gallbladder lumen. There is no wal l thickening or pericholecystic fluid. No common duct stone or biliary tree dilatation identified. IMPRESSION: Normal gallbladder and biliary tree ultrasound.
[2019-01-11] MEDS ORDERED: METRONIDAZOLE 500mg IVPB 500 MG/100 ML BAG IV ONE (20:17)
[2019-01-11] MEDS ORDERED: CIPROFLOXACIN 400mg IV 400 MG/200 ML BAG IV ONE (20:17)
--- NOTE | 2019-01-11 21:29 | P.HP ---
Certification for Inpatient Patient admitted to: Inpatient With expected LOS: >2 Midnights Practitioner: I am a practitioner with admitting privileges, knowledge of patient current condition, hospital course, and medical plan of care. Services: Services provided to patient in accordance with Admission requirements found in Title 42 Section 412.3 of the Code of Federal Regulations Patient History Date of Service: 01/11/19 Reason for admission: colitis/pancreatitis History of Present Illness: Mr Saez is a 33 years old male with history of obesity, otherwise healthy, who start with abdominal pain about 3 days ago. It was mostly in periumbilical area, no radiation, associated with nausea and diarrhea. He did has not had vomiting, intake was poor. He denied fever but has had chills. Today, he noticed some blood in his stools. At arrival, HR was 130 bpm, BP 136/71. Lab work remarkable for normal WBC count, Hgb 14.5 mg/dl. Also Lipase was significantly elevated 5277. CT abd/pelvis shows normal Gallbladder and Pancreas , however signs consistent with colitis. At my encounter, the patient was still symptomatic. Allergies No Known Allergies Allergy (Unverified 04/02/16 18:19) Home medications list reviewed: Yes - Past Medical/Surgical History -: obestiy Past Surgical History: Reviewed- Non-Contributory - Family History Family History: Reviewed- Non-Contributory - Social History Smoking Status: Never smoker Alcohol use: Yes CD- Drugs: No Place of Residence: Home Review of Systems 10-point ROS is otherwise unremarkable Physical Examination - Physical Exam General: Alert, In no apparent distress HEENT: Atraumatic, PERRLA, Mucous membr. moist/pink, EOMI, Sclerae nonicteric Neck: Supple, 2+ carotid pulse no bruit, No LAD, Without JVD or thyroid abnormality Respiratory: Clear to auscultation bilaterally, Normal air movement Cardiovascular: Regular rate/rhythm, Normal S1 S2 Gastrointestinal: Hyperactive, Tenderness (diffuse tender to palpation) Musculoskeletal: No tenderness Integumentary: No rashes Neurological: Normal gait, Normal speech, Normal strength at 5/5 x4 extr, Normal tone, Normal affect Lymphatics: No axilla or inguinal lymphadenopathy - Studies Laboratory Data (last 24 hrs) 01/11/19 15:07: PT 14.4 H, INR 1.23, APTT 35.2 01/11/19 15:07: Creatinine 0.84 01/11/19 15:07: WBC 9.0, Hgb 14.5, Hct 42.4, Plt Count 354 01/11/19 15:07: Sodium 139, Potassium 3.8, BUN 9, Creatinine 0.85, Glucose 107 H , Magnesium 2.0, Total Bilirubin 0.2, AST 18, ALT 31, Alkaline Phosphatase 76, Lipase 5277 H Assessment and Plan - Problems (Diagnosis) (1) Colitis Current Visit: Yes Status: Acute (2) Pancreatitis Current Visit: Yes Status: Acute Qualifiers: Chronicity: acute Pancreatitis type: unspecified pancreatitis type Acute pancreatitis complication: unspecified Qualified Code(s): K85.90 - Acute pancreatitis without necrosis or infection, unspecified (3) Obesity Current Visit: Yes Status: Acute Qualifiers: Obesity type: unspecified obesity type Obesity classification: unspecified obesity classification Serious obesity comorbidity presence: unspecified whether serious comorbidity present Qualified Code(s): E66.9 - Obesity, unspecified - Plan The patient will be admitted to the hospital due to colitis. His lipase is significantly elevated with normal pancreas on CT abd/pelvis, subsequent US shows normal gallbladder and biliary tree. Will start empiric antibiotics for colitis, C.Diff and stool cultures. He will need a colonoscopy down the road. Keep NPO, start IV fluids, check lipid profile. - Advance Directives Does patient have a Living Will: No Does patient have a Durable POA for Healthcare: No - Code Status/Comfort Care Code Status Assessed: Yes Code Status: Full Code
[2019-01-11] MEDS ORDERED: MORPHINE 2 MG/ML SYR IV PRN (22:00)
[2019-01-11] MEDS: NA CHLORIDE 0.9% 1,000 ML IV SCH (22:00)
[2019-01-11] MEDS ORDERED: ONDANSETRON 4 MG/2 ML VIAL IV PRN (22:00)
[2019-01-12] MEDS: METRONIDAZOLE 500mg IVPB 500 MG/100 ML BAG IV SCH ×2 (01:00→09:54)
[2019-01-12] MEDS: NA CHLORIDE 0.9% 1,000 ML IV SCH ×3 (05:28→23:26)
[2019-01-12 06:20] LABS: Absolute Lymphocytes (CBC) 1.4 K/uL (0.7-4.9); Basophils % 0.2 % (0-1.3); Eosinophils % 0.7 % (0-4.4); Hematocrit 39.6 % (39.6-49.0); Lymphocytes % 18.9 % (15.3-44.8); Monocytes % 9.9 % (3.3-12.3); RBC Red Blood Cell Count 4.53 M/uL (4.33-5.43)
[2019-01-12 06:42] LABS: ALT/SGPT 28 U/L (12-78); AST/SGOT 17 U/L (15-37); Albumin 2.8 g/dL (3.4-5.0); Alkaline Phosphatase 68 U/L (45-117); BUN Blood Urea Nitrogen 5 mg/dL (7-18); Bicarbonate 26 mmol/L (21-32); Bilirubin Total 0.2 mg/dL (0.2-1.0); Glucose Level 98 mg/dL (74-106); HDL Cholesterol 38 mg/dL (40-60); LDL Cholesterol, Calculated 90 (<130); Lipase 1033 U/L (73-393); Potassium 3.8 mmol/L (3.5-5.1); Protein, Total 7.1 g/dL (6.4-8.2); Sodium Level 141 mmol/L (136-145)
[2019-01-12] MEDS ORDERED: KCL 20 MEQ/100 mL IVPB 20 MEQ/100 ML BAG IV SCH (08:00)
[2019-01-12] MEDS ORDERED: CIPROFLOXACIN 400mg IV 400 MG/200 ML BAG IV SCH (09:00)
[2019-01-12] MEDS ORDERED: ENOXAPARIN 40 MG/0.4 ML SQ SCH (17:00)
[2019-01-12] MEDS: VANCOMYCIN ORAL SOLN 250 MG/5 ML OSYR PO SCH ×2 (17:11→23:26)
--- NOTE | 2019-01-12 20:15 | PN ---
Date of Progress Note: 01/12/2019 Subjective: The patient seen and examined. Chart reviewed and case discussed with RN. The patient states his pain is slightly better from yesterday. No nausea or vomiting today. Medications: List reviewed. Physical Examination: Vital Signs: Temperature 97.4, heart rate 81, blood pressure 122/67, respirations 18, O2 98% on room air. General: Awake, alert, oriented x3. Morbidly obese male in some mild distress. CV: S1, S2. Regular rate and rhythm. Peripheral pulses present. Respiratory: Moving air well bilaterally. No wheezing or stridor. Gastrointestinal: Abdomen is soft. Mild tenderness to palpation. No guarding or rigidity. No rebo und. Bowel sounds are positive. Extremities: No clubbing, cyanosis. The patient has trace pedal edema. Neuro: Cranial nerves 2 through 12 intact grossly. No focal neurological deficit. Skin: No rashes. Normal skin turgor. Laboratory Data: Sodium 141, potassium 3.8, chloride 109, CO2 26, BUN 5, creatinine 0.68, glucose 98 , calcium 7.8, albumin 2.8, triglycerides 110, lipase 1033. WBC 7.5, H and H 13.9, 39.6, platelets 3 33. Cultures pending. Assessment And Plan: A 33-year-old male with: 1.Acute colitis. Continue with IV antibiotics and follow up on Clostridium difficile results. 2.Acute pancreatitis, unclear etiology, may be idiopathic versus ductal stone. The patient's lipase levels trending down. We will start on clear liquids. Continue IV pain medications and IV fluids. 3.Morbid obesity, BMI 50. The patient has been counseled extensively. He should pursue bariatric s urgery once his acute illness has resolved. 4.DVT prophylaxis with SCDs. Disposition: Likely discharge in the next 24-48 hours depending on clinical response. SA/MODL Voice ID: [id number] Report ID: [id number]
[2019-01-12] MEDS: LACTOBACILLUS/ACIDOPHILUS TAB PO SCH (20:22)
[2019-01-13] MEDS: VANCOMYCIN ORAL SOLN 250 MG/5 ML OSYR PO SCH ×2 (05:49→11:55)
[2019-01-13] MEDS: NA CHLORIDE 0.9% 1,000 ML IV SCH (06:00)
[2019-01-13 06:11] LABS: BUN Blood Urea Nitrogen 4 mg/dL (7-18); Bicarbonate 26 mmol/L (21-32); Glucose Level 92 mg/dL (74-106); Lipase 1179 U/L (73-393); Potassium 3.8 mmol/L (3.5-5.1); Sodium Level 142 mmol/L (136-145)
[2019-01-13] MEDS: LACTOBACILLUS/ACIDOPHILUS TAB PO SCH (08:46)
[2019-01-13] MEDS ORDERED: POTASSIUM CL SA 10 MEQ TAB PO ONE (09:00)
--- NOTE | 2019-01-14 11:44 | DS ---
Date of Discharge: 01/13/2019 Consultants: None. Admitting Diagnoses: 1. Acute abdominal pain. 2. Acute colitis. 3. Acute pancreatitis. 4. Morbid obesity. Discharge Diagnoses: 1. Acute colitis secondary to Clostridium difficile. 2. Acute pancreatitis, unclear etiology, improving. 3. Morbid obesity, BMI of 50. Hospital Course: The patient is a morbidly obese 33-year-old male with no significant past medical history, comes in with abdominal pain, diarrhea, nausea. The patient's CT scan showed signs consistent with colitis. The patient had elevated lipase level at 5200, started on IV fluids, pain control and IV antibiotics. He was kept n.p.o. The patient's condition improved. His white blood cell count remained normal. His lipase level decreased to 1000. His triglyceride levels were normal. CT did not show any abnormalities of pancreas or any gallbladder or ductal issues. Ultrasound also showed normal gallbladder and biliary tree ultrasound is unclear etiology of his pancreatitis. The patient's C diff assay was positive. Stool culture did not show any Salmonella or Shigella or Campylobacter. His condition improved. He was able to tolerate GI soft diet. He was able to ambulate. The pain resolved. He is stable for discharge. He was afebrile. Blood pressure was within normal limits. Did not have any further pain, nausea, or vomiting. He was then discharged home in a stable condition. Activity: As tolerated. Medications: As per medication reconciliation list. Followup: Follow up with primary care physician in 2-3 days. Return to ER for worsening condition. Diet: Pike. Activity: As tolerated. Physical Examination: General: Awake, alert, oriented x3. Morbidly obese male. CV: S1, S2. No murmurs. Respiratory: Moving air well bilaterally. Abdomen: Abdomen is soft, nontender, nondistended. Positive bowel sounds. Extremities: No clubbing, cyanosis, or edema. Neurologic: Nonfocal. Total time spent discharging patient was 32 minutes. /KASI Voice ID: [id number] Report ID: [id number]
== END 2019-01-13 13:30 | disposition home or self-care (01) | DRG 371 ==
LOC: ER 13:54 → ERHOLD 21:08 → 2ND 21:58
PROVIDERS: ADMIT Internal Medicine; ATTEND Family Medicine
DX: A04.72 Enterocolitis due to Clostridium difficile, not specified as recurrent (principal); K85.90 Acute pancreatitis without necrosis or infection, unspecified; Z68.43 Body mass index [BMI] 50.0-59.9, adult; E66.01 Morbid (severe) obesity due to excess calories
CPT/HCPCS: 36415; 74177; 76705; 80048; 80053; 80061; 80076; 80307; 81003; 82962; 83690; 83735; 85025; 85610; 85730; 87045; 87046; 87493; 96361; 96365; 96375; 99284; J0744; J1650; J2270; J2405; J7030; Q9967

== ENCOUNTER 2020-02-10 09:13 | Emergency (ER) | payer SELFPAY ==
[2020-02-10 09:55] LABS: Protime INR 1.08
[2020-02-10 10:01] LABS: Basophils % 0.5 % (0-1.3); Hematocrit 42.1 % (39.6-49.0); Lymphocytes % 25.1 % (15.3-44.8); MPV 8.6 fL (7.6-11.3); RBC Red Blood Cell Count 4.79 M/uL (4.33-5.43)
--- NOTE | 2020-02-10 10:01 | RAD REPORT ---
EXAM DESCRIPTION: RAD - Chest Single View - 02/10/2020 9:56 am CLINICAL HISTORY: Palpitations;Chest pain Chest pain. COMPARISON: Chest Single View dated 05/11/2018; Chest Single View dated 04/02/2016; CHEST PA AND LAT 2 VIEW dated 04/27/2012; CHEST SINGLE VIEW dated 03/08/2008 FINDINGS: Portable technique limits examination quality. The lungs are grossly clear. The heart is normal in size. No displaced fractures. IMPRESSION: No acute intrathoracic process suspected.
[2020-02-10 10:16] LABS: ALT/SGPT 33 U/L (12-78); AST/SGOT 19 U/L (15-37); Albumin 3.4 g/dL (3.4-5.0); Alkaline Phosphatase 77 U/L (45-117); BUN Blood Urea Nitrogen 9 mg/dL (7-18); Bicarbonate 26 mmol/L (21-32); Bilirubin Direct < 0.1 mg/dL (0-0.2); Bilirubin Total 0.4 mg/dL (0.2-1.0); Glucose Level 94 mg/dL (74-106); Magnesium 2.2 mg/dL (1.8-2.4); NT PRO-BNP 27 pg/mL (<125); Potassium 4.1 mmol/L (3.5-5.1); Protein, Total 8.2 g/dL (6.4-8.2); Sodium Level 140 mmol/L (136-145); Troponin (Emerg Dept Use Only) < 0.02 ng/mL (0.0-0.045)
[2020-02-10 11:08] LABS: Barbiturates NEGATIVE (NEGATIVE); Benzodiazepines NEGATIVE (NEGATIVE); Cocaine NEGATIVE (NEGATIVE); METHAMPHETAM NEGATIVE (NEGATIVE); Methadone NEGATIVE (NEGATIVE); Opiates NEGATIVE (NEGATIVE); Phencyclidine NEGATIVE (NEGATIVE); THC Cannibis NEGATIVE (NEGATIVE)
[2020-02-10 11:16] LABS: Urine Blood NEGATIVE (NEG); Urine Glucose NEGATIVE (NEG); Urine Protein NEGATIVE (NEG); Urine Specific Gravity 1.025 (1.005-1.030)
--- NOTE | 2020-02-10 11:46 | ER ---
Nurse's Notes [facility] Name: Tom Saez Age: 34 yrs Sex: Male : 1985 Arrival Date: 02/10/2020 Time: 09:13 Bed 7 Private MD: Diagnosis: Palpitations;Chest pain, unspecified Presentation: 02/09 09:28 Chief complaint: Patient states: intermittent left sided chest pains since Thursday, iw thought maybe he pulled a muscle, pain is worse when he is inactive, also feels like his heart is racing at night, denies SOB. Coronavirus screen: Client denies travel out of the [place] in the last 14 days. At this time, the client does not indicate any symptoms associated with coronavirus-19. Ebola Screen: Patient negative for fever greater than or equal to 101.5 degrees Fahrenheit, and additional compatible Ebola Virus Disease symptoms Patient denies exposure to infectious person. Patient denies travel to an Ebola-affected area in the 21 days before illness onset. No symptoms or risks identified at this time. Initial Sepsis Screen: Does the patient meet any 2 criteria? No. Patient's initial sepsis screen is negative. Does the patient have a suspected source of infection? No. Patient's initial sepsis screen is negative. Risk Assessment: Do you want to hurt yourself or someone else? Patient reports no desire to harm self or others. Onset of symptoms was February 08, 2020. 09:28 Method Of Arrival: Ambulatory iw 09:28 Acuity: APOLLO 3 iw Historical: - Allergies: 09:30 No Known Allergies; iw - Home Meds: 09:30 None [Active]; iw - PMHx: 09:30 None; iw - PSHx: 09:30 None; iw - Immunization history:: Adult Immunizations not up to date. - Social history:: Smoking status: Patient denies any tobacco usage or history of. Screenin:48 Abuse screen: Denies threats or abuse. Denies injuries from another. Nutritional hb screening: No deficits noted. Tuberculosis screening: No symptoms or risk factors identified. Fall Risk None identified. Assessment: 09:30 General: Appears in no apparent distress. Behavior is calm, cooperative. Pain: hb Complains of pain in chest Pain does not radiate. Pain currently is 5 out of 10 on a pain scale. Pain began 2-3 days ago. Neuro: Level of Consciousness is awake, alert, obeys commands, Oriented to person, place, time, situation. Cardiovascular: Capillary refill < 3 seconds Patient's skin is warm and dry. Rhythm is regular. Respiratory: Respiratory effort is even, unlabored, Respiratory pattern is regular, symmetrical. GI: No signs and/or symptoms were reported involving the gastrointestinal system. : No signs and/or symptoms were reported regarding the genitourinary system. EENT: No signs and/or symptoms were reported regarding the EENT system. Derm: Skin is pink, warm \T\ dry. Musculoskeletal: No signs and/or symptoms reported regarding the musculoskeletal system. 10:30 Reassessment: Patient appears in no apparent distress at this time. Patient and/or hb family updated on plan of care and expected duration. Pain level reassessed. Patient is alert, oriented x 3, equal unlabored respirations, skin warm/dry/pink. 11:30 Reassessment: Patient appears in no apparent distress at this time. Patient and/or hb family updated on plan of care and expected duration. Pain level reassessed. Patient is alert, oriented x 3, equal unlabored respirations, skin warm/dry/pink. 12:15 Reassessment: Patient appears in no apparent distress at this time. Patient and/or hb family updated on plan of care and expected duration. Pain level reassessed. Patient is alert, oriented x 3, equal unlabored respirations, skin warm/dry/pink. Vital Signs: 09:28 BP 141 / 89; Pulse 86; Resp 18 S; Pulse Ox 100% on R/A; Weight 136.08 kg; Height 5 ft. iw 5 in. (165.10 cm); Pain 5/10; 10:53 BP 113 / 73; Pulse 71; Resp 14; Pulse Ox 100% ; hb 12:00 BP 118 / 74; Pulse 70; Resp 15; Pulse Ox 99% on R/A; hb 09:28 Body Mass Index 49.92 (136.08 kg, 165.10 cm) iw ED Course: 09:13 Patient arrived in ED. as 09:21 Lou Frazier, MC is Primary Nurse. hb 09:25 Agustin Lopez NP is PHCP. pm1 09:25 Robert Templeton MD is Attending Physician. pm1 09:30 Triage completed. iw 09:30 Arm band placed on. iw 09:44 Inserted saline lock: 20 gauge in right antecubital area, using aseptic technique. hb Blood collected. 09:45 EKG done, by ED staff, reviewed by Agustin Lopez NP. 3 09:48 Patient has correct armband on for positive identification. Placed in gown. Bed in low hb position. Call light in reach. Side rails up X 1. credit collections manager on. Pulse ox on. NIBP on. 09:48 Patient maintains SpO2 saturation greater than 95% on room air. hb 12:37 No provider procedures requiring assistance completed. IV discontinued, intact, hb bleeding controlled, No redness/swelling at site. Administered Medications: 12:37 Drug: TORadol - Ketorolac 15 mg Route: IVP; Site: right antecubital; hb 12:37 Follow up: Response: Medication administered at discharge. hb 12:37 Drug: Flexeril 10 mg Route: PO; hb 12:37 Follow up: Response: Medication administered at discharge. hb Outcome: 11:45 Discharge ordered by MD. pm1 12:37 Discharged to home ambulatory. hb 12:37 Condition: stable 12:37 Discharge instructions given to patient, Instructed on discharge instructions, follow up and referral plans. medication usage, Demonstrated understanding of instructions, follow-up care, medications, Prescriptions given X 2. 12:38 Patient left the ED. hb Signatures: Arielle Colbert Irene, Agustin Breuax RN, NP [employer] pm1 Lou Frazier RN RN Krystina Salgado [facility]
--- NOTE | 2020-02-10 11:46 | EDPHYS ---
Physician Documentation [facility] Name: Tom Saez Age: 34 yrs Sex: Male : 1985 Arrival Date: 02/10/2020 Time: 09:13 Bed 7 Private MD: ED Physician Robert Templeton HPI: 02/09 09:35 This 34 yrs old Male presents to ER via Ambulatory with complaints of Chest pm1 Pain, Irregular Pulse. 09:35 The patient or guardian reports chest pain that is located primarily in the anterior pm1 aspect of left upper chest, that has been ongoing for 2 weeks. The pain does not radiate. Associated signs and symptoms: Pertinent positives: palpitations, Pertinent negatives: abdominal pain, cough, dizziness, lightheadedness, nausea, near syncope, shortness of breath, vomiting. Duration: The patient or guardian reports a single episode, that is still ongoing. Modifying factors: The symptoms are alleviated by doesn't notice when working. the symptoms are aggravated by trying to go to sleep at night or at rest (not working). Severity of pain: in the emergency department the pain is unchanged. The patient has not experienced similar symptoms in the past. The patient has not recently seen a physician, the patient's primary care provider is Dr. Gallardo, has an appointment scheduled, today for the same complaint. 09:35 Patient has been decreasing his intake of coffee and energy drinks. pm1 Historical: - Allergies: 09:30 No Known Allergies; iw - Home Meds: 09:30 None [Active]; iw - PMHx: 09:30 None; iw - PSHx: 09:30 None; iw - Immunization history:: Adult Immunizations not up to date. - Social history:: Smoking status: Patient denies any tobacco usage or history of. ROS: 09:35 Constitutional: Negative for fever, chills, and weight loss, Eyes: Negative for injury, pm1 pain, redness, and discharge, ENT: Negative for injury, pain, and discharge, Neck: Negative for injury, pain, and swelling. 09:35 Respiratory: Negative for shortness of breath, cough, wheezing, and pleuritic chest pain, Abdomen/GI: Negative for abdominal pain, nausea, vomiting, diarrhea, and constipation, Back: Negative for injury and pain, : Negative for injury, bleeding, discharge, and swelling, MS/Extremity: Negative for injury and deformity, Skin: Negative for injury, rash, and discoloration, Neuro: Negative for headache, weakness, numbness, tingling, and seizure. 09:35 Cardiovascular: Positive for chest pain, palpitations, Negative for edema, orthopnea. Exam: 09:35 Constitutional: This is a well developed, well nourished patient who is awake, alert, pm1 and in no acute distress. Head/Face: Normocephalic, atraumatic. Neck: Trachea midline, no thyromegaly or masses palpated, and no cervical lymphadenopathy. Supple, full range of motion without nuchal rigidity, or vertebral point tenderness. No Meningismus. Chest/axilla: Normal chest wall appearance and motion. Nontender with no deformity. No lesions are appreciated. 09:35 Back: No spinal tenderness. No costovertebral tenderness. Full range of motion. Skin: Warm, dry with normal turgor. Normal color with no rashes, no lesions, and no evidence of cellulitis. MS/ Extremity: Pulses equal, no cyanosis. Neurovascular intact. Full, normal range of motion. 09:35 Cardiovascular: Rate: normal, Rhythm: regular, Pulses: no pulse deficits are appreciated, Edema: is not appreciated. 09:35 Respiratory: Exam negative for acute changes, respiratory distress, shortness of breath. 09:35 Abdomen/GI: Inspection: obese Palpation: abdomen is soft and non-tender, in all quadrants. 09:35 Neuro: Exam negative for acute changes, Orientation: is normal, Motor: is normal, moves all fours, Gait: is steady, at a normal pace, without difficulty. Vital Signs: 09:28 BP 141 / 89; Pulse 86; Resp 18 S; Pulse Ox 100% on R/A; Weight 136.08 kg; Height 5 ft. iw 5 in. (165.10 cm); Pain 5/10; 10:53 BP 113 / 73; Pulse 71; Resp 14; Pulse Ox 100% ; hb 12:00 BP 118 / 74; Pulse 70; Resp 15; Pulse Ox 99% on R/A; hb 09:28 Body Mass Index 49.92 (136.08 kg, 165.10 cm) iw MDM: 09:25 Patient medically screened. pm1 10:25 Data reviewed: vital signs. Data interpreted: Pulse oximetry: on room air is 100 %. pm1 Interpretation: normal. 11:45 Counseling: I had a detailed discussion with the patient and/or guardian regarding: the pm1 historical points, exam findings, and any diagnostic results supporting the discharge/admit diagnosis, lab results, radiology results, the need for outpatient follow up, to return to the emergency department if symptoms worsen or persist or if there are any questions or concerns that arise at home. 02/09 09:32 Order name: Basic Metabolic Panel pm1 02/09 09:32 Order name: CBC with Diff pm1 02/09 09:32 Order name: LFT's pm1 02/09 09:32 Order name: Magnesium pm1 02/09 09:32 Order name: NT PRO-BNP pm1 02/09 09:32 Order name: PT-INR pm1 02/09 09:32 Order name: Troponin (emerg Dept Use Only) pm1 02/09 09:33 Order name: UDS pm1 02/09 10:00 Order name: Protime (+INR); Complete Time: 10:16 EDMS 02/09 10:01 Order name: CBC with Automated Diff; Complete Time: 10:16 EDMS 02/09 10:16 Order name: Basic Metabolic Panel; Complete Time: 10:16 EDMS 02/09 10:16 Order name: Liver (Hepatic) Function; Complete Time: 10:16 EDMS 02/09 10:16 Order name: Troponin (Emerg Dept Use Only); Complete Time: 10:16 EDMS 02/09 10:16 Order name: NT PRO-BNP; Complete Time: 10:16 EDMS 02/09 09:32 Order name: XRAY Chest (1 view) pm1 02/09 09:32 Order name: EKG; Complete Time: 09:34 pm1 02/09 09:33 Order name: Cardiac monitoring; Complete Time: 09:48 pm1 02/09 09:33 Order name: EKG - Nurse/Tech; Complete Time: 09:48 pm1 02/09 09:33 Order name: IV Saline Lock; Complete Time: 09:48 pm1 02/09 09:33 Order name: Labs collected and sent; Complete Time: 09:48 pm1 02/09 09:33 Order name: O2 Per Protocol; Complete Time: 09:48 pm1 02/09 09:33 Order name: O2 Sat Monitoring; Complete Time: 09:48 pm1 02/09 09:33 Order name: Urine Dipstick-Ancillary (obtain specimen); Complete Time: 10:53 pm1 02/09 10:01 Order name: RAD; Complete Time: 10:16 EDMS 02/09 10:16 Order name: Magnesium; Complete Time: 10:16 EDMS 02/09 10:57 Order name: Urine Dipstick--Ancillary (enter results) eb 02/09 11:08 Order name: Urine Drug Screen; Complete Time: 11:44 EDMS 02/09 11:17 Order name: Urine Dipstick-Ancillary; Complete Time: 11:44 EDMS EC:50 Rate is 77 beats/min. QRS [place] is Normal. No Q waves. T waves are Normal. No ST changes pm1 noted. Clinical impression: Normal ECG. Administered Medications: 12:37 Drug: TORadol - Ketorolac 15 mg Route: IVP; Site: right antecubital; hb 12:37 Follow up: Response: Medication administered at discharge. hb 12:37 Drug: Flexeril 10 mg Route: PO; hb 12:37 Follow up: Response: Medication administered at discharge. hb Disposition: 16:23 Co-signature as Attending Physician, Robert Templeton MD I agree with the assessment and kdr plan of care. Disposition: 02/10/20 11:45 Discharged to Home. Impression: Palpitations, Chest pain, unspecified. - Condition is Stable. - Discharge Instructions: Nonspecific Chest Pain, Palpitations. - Prescriptions for Cyclobenzaprine 10 mg Oral Tablet - take 1 tablet by ORAL route every 8 hours As needed; 30 tablet. Diclofenac Sodium 75 mg Oral Tablet, Delayed Release (E.C.) - take 1 tablet by ORAL route every 12 hours As needed; 30 tablet. - Medication Reconciliation Form, Thank You Letter, Antibiotic Education, Prescription Opioid Use form. - Follow up: Emergency Department; When: As needed; Reason: Worsening of condition. Follow up: Private Physician; When: 2 - 3 days; Reason: Recheck today's complaints, Continuance of care, Re-evaluation by your physician. - Problem is new. - Symptoms have improved. Signatures: Dispatcher [employer] [facility] Robert Templeton MD MD kdr Williams, Irene, RN RN Agustin Taylor NP BUSINESS CONSULTANT pm1 Lou Frazier, RN RN hb Corrections: (The following items were deleted from the chart) 12:38 11:45 02/10/2020 11:45 Discharged to Home. Impression: Palpitations; Chest pain, hb unspecified. Condition is Stable. Forms are Medication Reconciliation Form, Thank You Letter, Antibiotic Education, Prescription Opioid Use. Follow up: Emergency Department; When: As needed; Reason: Worsening of condition. Follow up: Private Physician; When: 2 - 3 days; Reason: Recheck today's complaints, Continuance of care, Re-evaluation by your physician. Problem is new. Symptoms have improved. pm1
[2020-02-10] MEDS ORDERED: CYCLOBENZAPRINE 10 MG TAB ONE (12:39)
[2020-02-10] MEDS ORDERED: KETOROLAC 30 MG/ML INJ ONE (12:39)
[2020-02-10 12:50] VITALS: O2SAT 100
[2020-02-10 12:51] VITALS: BP 113/73
--- NOTE | 2020-02-11 07:19 | EKG ---
Test Date: 2020-02-10 Test Time: 09:45:25 Scanner Supervisor: ATA MEASUREMENT RESULTS: Intervals: Rate: 77 PA: 138 QRSD: 90 QT: 374 QTc: 423 [place]: P: 23 PA: 138 QRS: 19 T: 33 INTERPRETIVE STATEMENTS: Normal sinus rhythm Normal ECG Compared to ECG 05/11/2018 00:03:00 No significant changes Electronically Signed On 02-11-20 07:17:54 CDT by Vamsi Holly
== END 2020-02-10 12:38 | disposition home or self-care (01) ==
LOC: ER 09:13
DX: R07.9 Chest pain, unspecified (principal); R00.2 Palpitations
CPT/HCPCS: 36415; 71045; 80048; 80076; 80307; 81003; 83735; 83880; 84484; 85025; 85610; 93005; 96374; 99285

== ENCOUNTER 2020-08-23 20:50 | Emergency (ER) | payer BC, SELFPAY ==
--- NOTE | 2020-08-23 22:00 | ER ---
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 No ll1 fever or N/V. Coronavirus screen: Client denies travel out of the [place] in the last 14 days. At this time, the client does not indicate any symptoms associated with coronavirus-19. Ebola Screen: Patient denies travel to an Ebola-affected area in the 21 days before illness onset. Initial Sepsis Screen: Does the patient meet any 2 criteria? No. Patient's initial sepsis screen is negative. Does the patient have a suspected source of infection? Yes: Other: tooth/jaw pain. Risk Assessment: Do you want to hurt yourself or someone else? Patient reports no desire to harm self or others. Onset of symptoms was August 23, 2020. 20:57 Method Of Arrival: Ambulatory ll1 20:57 Acuity: APOLLO 4 ll1 Historical: - Allergies: 20:57 No Known Allergies; ll1 - PMHx: 20:57 None; ll1 - PSHx: 20:57 None; ll1 - Immunization history:: Flu vaccine is up to date. - Social history:: Smoking status: Patient denies any tobacco usage or history of. Screenin:59 Abuse screen: Denies threats or abuse. Nutritional screening: No deficits noted. ll1 Tuberculosis screening: No symptoms or risk factors identified. Assessment: 22:56 Reassessment: pt MSE by ED provider. bb Vital Signs: 20:57 BP 153 / 90; Pulse 79; Resp 17; Temp 97.0; Pulse Ox 98% ; Weight 127.01 kg; Height 5 ll1 ft. 4 in. (162.56 cm); Pain 8/10; 20:57 Body Mass Index 48.06 (127.01 kg, 162.56 cm) ll1 ED Course: 20:52 Patient arrived in ED. cl3 20:57 Arm band placed on. ll1 20:59 Triage completed. ll1 21:49 Guillermo Mcguire MD is Attending Physician. tw4 Administered Medications: No medications were administered Outcome: 21:59 Discharge ordered by . [facility] 22:56 Medical screen evaluation completed per provider. Patient declined treatment. :56 Patient left the ED. bb Signatures: Chelle Foster, RN RN Guillermo Bui MD MD tw4 Damir Agarwal cl3 Yesenia Agarwal RN RN ll1
--- NOTE | 2020-08-23 22:00 | EDPHYS ---
Physician Documentation [facility] Name: Tom Saez Age: 34 yrs Sex: Male : 1985 Arrival Date: 08/23/2020 Time: 20:52 Bed Waiting Private MD: ED Physician Guillermo Mcguire HPI: 08/23 21:57 This 34 yrs old Male presents to ER via Ambulatory with complaints of tw4 Toothache. 21:57 The patient presents with pain. The problem is located in the upper right third molar. tw4 Onset: The symptoms/episode began/occurred today. Duration: The symptoms are continuous. Modifying factors: The symptoms are alleviated by nothing, the symptoms are aggravated by nothing. Severity of symptoms: At their worst the symptoms were moderate, in the emergency department the symptoms are unchanged. The patient has not experienced similar symptoms in the past. Historical: - Allergies: 20:57 No Known Allergies; ll1 - PMHx: 20:57 None; ll1 - PSHx: 20:57 None; ll1 - Immunization history:: Flu vaccine is up to date. - Social history:: Smoking status: Patient denies any tobacco usage or history of. ROS: 21:57 Constitutional: Negative for fever, chills, and weight loss, Eyes: Negative for injury, tw4 pain, redness, and discharge, Cardiovascular: Negative for chest pain, palpitations, and edema, Respiratory: Negative for shortness of breath, cough, wheezing, and pleuritic chest pain, Abdomen/GI: Negative for abdominal pain, nausea, vomiting, diarrhea, and constipation, Back: Negative for injury and pain, MS/Extremity: Negative for injury and deformity, Skin: Negative for injury, rash, and discoloration, Neuro: Negative for headache, weakness, numbness, tingling, and seizure. 21:57 ENT: Positive for dental pain, Negative for drainage from ear(s), ear pain, foreign body sensation, Gum pain rhinorrhea, sinus congestion, sinus pain, difficulty swallowing, difficulty handling secretions, hoarseness. Exam: 21:57 Constitutional: This is a well developed, well nourished patient who is awake, alert, tw4 and in no acute distress. Head/Face: Normocephalic, atraumatic. Eyes: Pupils equal round and reactive to light, extra-ocular motions intact. Lids and lashes normal. Conjunctiva and sclera are non-icteric and not injected. Cornea within normal limits. Periorbital areas with no swelling, redness, or edema. 21:57 Neck: Trachea midline, no thyromegaly or masses palpated, and no cervical lymphadenopathy. Supple, full range of motion without nuchal rigidity, or vertebral point tenderness. No Meningismus. 21:57 ENT: External ear(s): are unremarkable, Nose: Mouth: is normal, Posterior pharynx: is normal, Dental exam: dental caries, that is mild, specifically in the upper right third molar (#1) and upper right second molar (#2). Vital Signs: 20:57 BP 153 / 90; Pulse 79; Resp 17; Temp 97.0; Pulse Ox 98% ; Weight 127.01 kg; Height 5 ll1 ft. 4 in. (162.56 cm); Pain 8/10; 20:57 Body Mass Index 48.06 (127.01 kg, 162.56 cm) ll1 MDM: 21:57 Differential diagnosis: dental caries, gingivitis, dental abscess, aphthous ulcers, tw4 acute necrotizing ulcerative gingivitis. Data reviewed: vital signs, nurses notes. Counseling: I had a detailed discussion with the patient and/or guardian regarding: the historical points, exam findings, and any diagnostic results supporting the discharge/admit diagnosis. Medical screen evaluation completed. [facility]. Special discussion: I discussed with the patient/guardian in detail that at this point there is no indication for admission to the hospital. It is understood, however, that if the symptoms persist or worsen the patient needs to return immediately for re-evaluation. 21:59 Patient medically screened. tw4 Administered Medications: No medications were administered Disposition: 18/21 21:59 Discharged to Home. Impression: Dental caries. - Condition is Stable. - Medication Reconciliation Form, Thank You Letter, Antibiotic Education, Prescription Opioid Use form. - Follow up: Private Physician; When: Upon discharge from the Emergency Department; Reason: Recheck today's complaints, Continuance of care, Re-evaluation by your physician. - Problem is new. - Symptoms are unchanged. Signatures: Chelle Foster RN RN bb Guillermo Mcguire MD MD tw4 Stefano, Lynsay, RN RN ll1 Corrections: (The following items were deleted from the chart) 22:56 21:59 08/23/2020 21:59 Discharged to Home. Impression: Dental caries. Condition is bb Stable. Forms are Medication Reconciliation Form, Thank You Letter, Antibiotic Education, Prescription Opioid Use. Follow up: Private Physician; When: Upon discharge from the Emergency Department; Reason: Recheck today's complaints, Continuance of care, Re-evaluation by your physician. Problem is new. Symptoms are unchanged. tw4
[2020-08-23 23:07] VITALS: BP 153/90; TEMP 97; O2SAT 98
== END 2020-08-23 22:56 | disposition home or self-care (01) ==
LOC: ER 20:50
DX: K02.9 Dental caries, unspecified (principal)
CPT/HCPCS: 99281

== ENCOUNTER 2020-09-02 01:43 | Emergency (ER) | payer BC ==
[2020-09-02] MEDS ORDERED: NA CHLORIDE 0.9% 1,000 ML ONE (02:25)
[2020-09-02] MEDS ORDERED: MORPHINE 4 MG/ML SYR ONE (02:25)
[2020-09-02] MEDS ORDERED: ONDANSETRON 4 MG/2 ML VIAL ONE (02:25)
[2020-09-02 02:32] LABS: Absolute Lymphocytes (CBC) 4.1 K/uL (0.7-4.9); Basophils % 0.3 % (0-1.3); Hematocrit 42.5 % (39.6-49.0); Lymphocytes % 35.2 % (15.3-44.8); MPV 9.1 fL (7.6-11.3); RBC Red Blood Cell Count 4.81 M/uL (4.33-5.43)
[2020-09-02 02:38] LABS: ALT/SGPT 26 U/L (12-78); AST/SGOT 15 U/L (15-37); Albumin 3.5 g/dL (3.4-5.0); Alkaline Phosphatase 98 U/L (45-117); BUN Blood Urea Nitrogen 12 mg/dL (7-18); Bicarbonate 23 mmol/L (21-32); Bilirubin Direct < 0.1 mg/dL (0-0.2); Bilirubin Total 0.3 mg/dL (0.2-1.0); Glucose Level 112 mg/dL (74-106); Lipase 88 U/L (73-393); Potassium 3.5 mmol/L (3.5-5.1); Protein, Total 8.4 g/dL (6.4-8.2); Sodium Level 140 mmol/L (136-145)
[2020-09-02 03:20] LABS: Urine Blood 3+ (NEG); Urine Glucose NEGATIVE (NEG); Urine Protein 1+ (NEG); Urine Specific Gravity >1.030 (1.005-1.030); Urine pH 5.5 (5.0-7.0)
[2020-09-02] MEDS ORDERED: KETOROLAC 30 MG/ML INJ ONE (03:29)
--- NOTE | 2020-09-02 03:56 | ER ---
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 Coronavirus screen: Client denies travel out of the [place] in the last 14 days. At this time, the client does not indicate any symptoms associated with coronavirus-19. Ebola Screen: No symptoms or risks identified at this time. Initial Sepsis Screen: Does the patient meet any 2 criteria? No. Patient's initial sepsis screen is negative. Does the patient have a suspected source of infection? No. Patient's initial sepsis screen is negative. Risk Assessment: Do you want to hurt yourself or someone else? Patient reports no desire to harm self or others. Onset of symptoms was September 02, 2020. 02:04 Method Of Arrival: Ambulatory lp1 02:04 Acuity: APOLLO 3 lp1 Historical: - Allergies: 02:07 No Known Allergies; lp1 - Home Meds: 02:07 None [Active]; lp1 - PMHx: 02:07 None; lp1 - PSHx: 02:07 None; lp1 - Immunization history:: Adult Immunizations up to date. - Social history:: Smoking status: Patient denies any tobacco usage or history of. Screenin:06 Abuse screen: Denies threats or abuse. Denies injuries from another. Nutritional lp1 screening: No deficits noted. Tuberculosis screening: No symptoms or risk factors identified. Fall Risk None identified. Assessment: 02:00 General: Appears in no apparent distress. uncomfortable, Behavior is cooperative, jb4 anxious, restless. Pain: Complains of pain in left lower quadrant Pain does not radiate. Pain currently is 10 out of 10 on a pain scale. Quality of pain is described as stabbing, Pain began 1 hour ago. Is continuous. Neuro: Level of Consciousness is awake, alert, obeys commands, Oriented to person, place, time, situation. Cardiovascular: Patient's skin is warm and dry. Respiratory: Airway is patent Respiratory effort is even, unlabored, Respiratory pattern is regular, symmetrical. GI: Abdomen is round non-distended, obese, Bowel sounds present X 4 quads. Abd is soft and non tender X 4 quads. : No signs and/or symptoms were reported regarding the genitourinary system. EENT: No signs and/or symptoms were reported regarding the EENT system. Derm: Skin is intact, Skin is clammy, Skin is normal, Skin temperature is warm. Musculoskeletal: Circulation, motion, and sensation intact. Range of motion: intact in all extremities. 02:40 Reassessment: Patient appears in no apparent distress at this time. Patient and/or jb4 family updated on plan of care and expected duration. Pain level reassessed. Respirations are even and unlabored, skin remains pink/warm/clammy, remains A\T\Ox4.PT reports pain has decreased to 9/10, is requesting more pain medication. Provider notified, no new orders at this time. 03:46 Reassessment: Patient resting, eyes closed, respirations even, unlabored. lp1 04:17 Reassessment: Patient appears in no apparent distress at this time. Patient resting. lp1 comfortably, appears drowsy, will attempt to call for ride home Patient states feeling better. Patient states symptoms have improved. 06:25 Reassessment: Patient is alert, oriented x 3, equal unlabored respirations, skin lp1 warm/dry/pink. Steady gait on discharge. Vital Signs: 02:04 BP 132 / 83; Pulse 94; Resp 20; Temp 97.7(O); Pulse Ox 100% on R/A; Weight 131.54 kg lp1 (R); Height 5 ft. 5 in. (165.10 cm); Pain 10/10; 02:30 BP 147 / 90; Pulse 73; Resp 16; Pulse Ox 94% on R/A; jb4 04:17 BP 147 / 83; Pulse 71; Resp 18; Pulse Ox 100% on R/A; Pain 1/10; lp1 02:04 Body Mass Index 48.26 (131.54 kg, 165.10 cm) lp1 ED Course: 01:45 Patient arrived in ED. cl3 01:52 Kin Emmanuel MD is Attending Physician. mh7 02:00 Inserted saline lock: 20 gauge in right antecubital area, using aseptic technique. lp1 Blood collected. 02:04 Rod Johnston, RN is Primary Nurse. jb4 02:06 Triage completed. lp1 02:06 Arm band placed on. lp1 02:07 Patient has correct armband on for positive identification. lp1 02:37 CT Stone Protocol In Process Unspecified. EDMS 03:15 Report received from Reggie Johnston RN. lp1 03:55 Tanner Verdugo MD is Referral Physician. 7 04:18 No provider procedures requiring assistance completed. IV discontinued, No lp1 redness/swelling at site. Pressure dressing applied. Administered Medications: 02:13 Drug: morphine 4 mg Route: IVP; Site: right antecubital; jb4 02:39 Follow up: Response: No adverse reaction; Pain is decreased; RASS: Alert and Calm (0) jb4 02:13 Drug: Zofran (Ondansetron) 4 mg Route: IVP; Site: right antecubital; jb4 02:39 Follow up: Response: No adverse reaction jb4 02:15 Drug: NS 0.9% 1000 ml Route: IV; Rate: 1000 ml; Site: right antecubital; jb4 04:18 Follow up: IV Status: Completed infusion; IV Intake: 800ml lp1 03:14 Drug: TORadol 30 mg Route: IVP; Site: right antecubital; jb4 04:18 Follow up: Response: Marked relief of symptoms lp1 Intake: 04:18 IV: 800ml; Total: 800ml. lp1 Outcome: 03:55 Discharge ordered by . 7 04:18 Condition: good lp1 04:18 Discharge instructions given to patient, Instructed on discharge instructions, follow up and referral plans. medication usage, Demonstrated understanding of instructions, follow-up care, medications, Prescriptions given X 4. 06:30 Patient left the ED. lp1 06:30 Discharged to home ambulatory. lp1 Signatures: Dispatcher [employer] [facility] Chelle Foster RN RN bb Sarah Huitron RN RN lp1 Rod Johnston, MC matos4 Damir Agarwal cl3 Kin Emmanuel MD MD 7 Corrections: (The following items were deleted from the chart) 02:21 02:00 No provider procedures requiring assistance completed. jb4 jb4 03:15 02:00 Derm: Skin is intact, Skin is pink, warm \T\ dry. jb4 jb4 03:15 02:40 Reassessment: Patient appears in no apparent distress at this time. Patient jb4 and/or family updated on plan of care and expected duration. Pain level reassessed. Patient is alert, oriented x 3, equal unlabored respirations, skin warm/dry/pink. PT reports pain has decreased to 9/10, is requesting more pain medication. Provider notified, no new orders at this time. jb4 06:56 06:52 Patient left the ED. bb lp1
--- NOTE | 2020-09-02 03:57 | EDPHYS ---
Physician Documentation [facility] Name: Tom Saez Age: 34 yrs Sex: Male : 1985 Arrival Date: 09/02/2020 Time: 01:45 Bed 16 Private MD: ED Physician Kin Emmanuel HPI: 09/02 02:14 This 34 yrs old Male presents to ER via Ambulatory with complaints of mh7 Abdominal Pain. 02:14 The patient presents with abdominal pain in the left lower quadrant. Onset: The mh7 symptoms/episode began/occurred today. The symptoms radiate to the left flank. Associated signs and symptoms: Pertinent positives: nausea, Pertinent negatives: anorexia, blood in stools, chest pain, constipation, diarrhea, dysuria, fever, headache, hematuria, palpitations, shortness of breath, testicular pain, vomiting, vomiting blood. The symptoms are described as intermittent, vague, waxing/waning. Modifying factors: The symptoms are alleviated by nothing, the symptoms are aggravated by nothing. Severity of pain: At its worst the pain was moderate today, in the emergency department the pain is unchanged. Historical: - Allergies: 02:07 No Known Allergies; lp1 - Home Meds: 02:07 None [Active]; lp1 - PMHx: 02:07 None; lp1 - PSHx: 02:07 None; lp1 - Immunization history:: Adult Immunizations up to date. - Social history:: Smoking status: Patient denies any tobacco usage or history of. ROS: 02:14 Constitutional: Negative for fever, chills, and weight loss, Eyes: Negative for injury, mh7 pain, redness, and discharge, ENT: Negative for injury, pain, and discharge, Neck: Negative for injury, pain, and swelling, Cardiovascular: Negative for chest pain, palpitations, and edema, Respiratory: Negative for shortness of breath, cough, wheezing, and pleuritic chest pain, : Negative for injury, bleeding, discharge, and swelling, MS/Extremity: Negative for injury and deformity, Skin: Negative for injury, rash, and discoloration, Neuro: Negative for headache, weakness, numbness, tingling, and seizure, Psych: Negative for depression, anxiety, suicide ideation, homicidal ideation, and hallucinations, Allergy/Immunology: Negative for hives, rash, and allergies, Endocrine: Negative for neck swelling, polydipsia, polyuria, polyphagia, and marked weight changes, Hematologic/Lymphatic: Negative for swollen nodes, abnormal bleeding, and unusual bruising. Exam: 02:14 Head/Face: Normocephalic, atraumatic. Eyes: Pupils equal round and reactive to light, mh7 extra-ocular motions intact. Lids and lashes normal. Conjunctiva and sclera are non-icteric and not injected. Cornea within normal limits. Periorbital areas with no swelling, redness, or edema. Neck: Trachea midline, no thyromegaly or masses palpated, and no cervical lymphadenopathy. Supple, full range of motion without nuchal rigidity, or vertebral point tenderness. No Meningismus. Chest/axilla: Normal chest wall appearance and motion. Nontender with no deformity. No lesions are appreciated. Cardiovascular: Regular rate and rhythm with a normal S1 and S2. No gallops, murmurs, or rubs. Normal PMI, no JVD. No pulse deficits. Respiratory: Lungs have equal breath sounds bilaterally, clear to auscultation and percussion. No rales, rhonchi or wheezes noted. No increased work of breathing, no retractions or nasal flaring. 02:14 Skin: Warm, dry with normal turgor. Normal color with no rashes, no lesions, and no evidence of cellulitis. MS/ Extremity: Pulses equal, no cyanosis. Neurovascular intact. Full, normal range of motion. Neuro: Awake and alert, GCS 15, oriented to person, place, time, and situation. Cranial nerves II-XII grossly intact. Motor strength 5/5 in all extremities. Sensory grossly intact. Cerebellar exam normal. Normal gait. Psych: Awake, alert, with orientation to person, place and time. Behavior, mood, and affect are within normal limits. 02:14 Constitutional: The patient appears in no acute distress, alert, awake, uncomfortable. 02:14 Abdomen/GI: Inspection: obese Bowel sounds: normal, in all quadrants, Palpation: mild abdominal tenderness, in the anterior aspect of left lateral abdomen and left lower quadrant, Rectal exam: the exam is deferred, because of patient request, Indicators: McBurney's point is not tender, Floyd's sign is negative, Rovsing's sign is negative, Obturator sign is negative, Psoas sign is negative, Liver: no appreciated palpable abnormalities, Hernia: not appreciated. 02:14 Back: ROM is normal, normal spinal alignment noted, CVA tenderness, that is mild, is noted on the left, muscle spasm, is not present. Vital Signs: 02:04 BP 132 / 83; Pulse 94; Resp 20; Temp 97.7(O); Pulse Ox 100% on R/A; Weight 131.54 kg lp1 (R); Height 5 ft. 5 in. (165.10 cm); Pain 10/10; 02:30 BP 147 / 90; Pulse 73; Resp 16; Pulse Ox 94% on R/A; jb4 04:17 BP 147 / 83; Pulse 71; Resp 18; Pulse Ox 100% on R/A; Pain 1/10; lp1 02:04 Body Mass Index 48.26 (131.54 kg, 165.10 cm) lp1 MDM: 03:53 Differential diagnosis: bowel obstruction, non-specific abd pain, Pyelonephritis, mh7 Ureterolithiasis, urinary tract infection. Data reviewed: vital signs, nurses notes, lab test result(s), CBC, electrolytes, urinalysis, radiologic studies, CT scan. Data interpreted: Pulse oximetry: on room air is 96 %. Interpretation: normal. Counseling: I had a detailed discussion with the patient and/or guardian regarding: the historical points, exam findings, and any diagnostic results supporting the discharge/admit diagnosis, the presence of at least one elevated blood pressure reading (>120/80) during this emergency department visit, lab results, radiology results, the need for outpatient follow up, a urologist, to return to the emergency department if symptoms worsen or persist or if there are any questions or concerns that arise at home. Response to treatment: the patient's symptoms have resolved after treatment, the patient's blood pressure is in an acceptable range, mental status has returned to baseline, the patient no longer shows bradycardia, the patient is not short of breath, the patient is not tachycardic, the patient's pain is gone, the patient's temperature has normalized. 03:55 Patient medically screened. [facility] 09/02 02:07 Order name: Basic Metabolic Panel; Complete Time: 03:10 [facility] 09/02 02:07 Order name: CBC with Diff; Complete Time: 02:37 [facility] 09/02 02:07 Order name: Hepatic Function; Complete Time: 03:10 [facility] 09/02 02:07 Order name: Lipase; Complete Time: 03:10 [facility] 09/02 02:07 Order name: CT Stone Protocol [facility] 09/02 03:04 Order name: Urine Dipstick--Ancillary (enter results); Complete Time: 03:53 [facility] 09/02 02:07 Order name: IV Saline Lock; Complete Time: 02:17 [facility] 09/02 02:07 Order name: Labs collected and sent; Complete Time: 02:17 [facility] 09/02 02:37 Order name: Urine Dipstick-Ancillary (obtain specimen); Complete Time: 03:07 [facility] Administered Medications: 02:13 Drug: morphine 4 mg Route: IVP; Site: right antecubital; jb4 02:39 Follow up: Response: No adverse reaction; Pain is decreased; RASS: Alert and Calm (0) jb4 02:13 Drug: Zofran (Ondansetron) 4 mg Route: IVP; Site: right antecubital; jb4 02:39 Follow up: Response: No adverse reaction jb4 02:15 Drug: NS 0.9% 1000 ml Route: IV; Rate: 1000 ml; Site: right antecubital; jb4 04:18 Follow up: IV Status: Completed infusion; IV Intake: 800ml lp1 03:14 Drug: TORadol 30 mg Route: IVP; Site: right antecubital; jb4 04:18 Follow up: Response: Marked relief of symptoms lp1 Disposition: 09/02/20 03:55 Discharged to Home. Impression: Ureterolithiasis. - Condition is Stable. - Discharge Instructions: Kidney Stones, [id number]. - Prescriptions for Zofran ODT 4 mg Oral tablet,disintegrating - place 1 tablet by TRANSLINGUAL route every 8 hours As needed; 6 tablet. ketorolac 10 mg Oral tablet - take 1 tablet by ORAL route every 6 hours As needed not to exceed 40 mg in 24hrs; 12 tablet. Tylenol- Codeine #3 300-30 mg Oral Tablet - take 2 tablets by ORAL route every 6 hours As needed; 16 tablet. Flomax 0.4 mg Oral Capsule, Sust. Release 24 hr - take 1 capsule by ORAL route once daily 1/2 hour following the same meal each day; 10 capsule. - Work release form, Medication Reconciliation Form, Thank You Letter, Antibiotic Education, Prescription Opioid Use form. - Follow up: Private Physician; When: 1 - 2 days; Reason: Worsening of condition, Recheck today's complaints, Continuance of care, Re-evaluation by your physician. Follow up: Tanner Verdugo MD; When: 1 - 2 days; Reason: Worsening of condition, Recheck today's complaints. - Problem is new. - Symptoms have improved. Signatures: Dispatcher [employer] EDMS Chelle Foster RN RN bb Sarah Huitron RN RN lp1 Rod Johnston RN RN jb4 Kin Emmanuel MD MD mh7 Corrections: (The following items were deleted from the chart) 06:52 03:55 09/02/2020 03:55 Discharged to Home. Impression: Ureterolithiasis. Condition is bb Stable. Forms are Medication Reconciliation Form, Thank You Letter, Antibiotic Education, Prescription Opioid Use. Follow up: Private Physician; When: 1 - 2 days; Reason: Worsening of condition, Recheck today's complaints, Continuance of care, Re-evaluation by your physician. Follow up: Tanner Verdugo; When: 1 - 2 days; Reason: Worsening of condition, Recheck today's complaints. Problem is new. Symptoms have improved. mh7
[2020-09-02 07:01] VITALS: TEMP 97.7
[2020-09-02 07:04] VITALS: BP 147/83; O2SAT 100
--- NOTE | 2020-09-02 10:58 | RAD REPORT ---
EXAM DESCRIPTION: CT - Stone Protocol - 09/02/2020 7:29 am CLINICAL HISTORY: The patient is 34 years old and is Male; Flank pain;Abd pain TECHNIQUE: Axial computed tomography images of the abdomen and pelvis without intravenous contrast. Sagittal and coronal reformatted images were created and reviewed. This CT exam was performed usi ng one or more of the following dose reduction techniques: automated exposure control, adjustment o f the mA and/or kV according to patient size, and/or use of iterative reconstruction technique. COMPARISON: CT of the abdomen and pelvis January 11, 2019 FINDINGS: LUNG BASES: Unremarkable. No mass. No consolidation. ABDOMEN: LIVER: The liver is enlarged and diffusely fatty. GALLBLADDER AND BILE DUCTS: The gallbladder is not well distended. PANCREAS: Unremarkable. No ductal dilation. SPLEEN: Unremarkable. ADRENALS: Unremarkable. No mass. KIDNEYS AND URETERS: Mild left hydroureteronephrosis is present secondary to a 5 mm left UVJ calc ulus. Edema of the left kidney is noted. Minimal left perinephric and periureteral stranding is pre sent. The right kidney is normal. STOMACH AND BOWEL: The stomach is distended with food contents. The small bowel is normal in edwin lesvia. Stool is present throughout colon. There is no mucosal thickening or evidence of bowel obstructi on. PELVIS: APPENDIX: The appendix is normal in caliber without surrounding inflammation. BLADDER: The bladder is not well distended. REPRODUCTIVE: Unremarkable as visualized. ABDOMEN and PELVIS: INTRAPERITONEAL SPACE: Unremarkable. No free air. No significant fluid collection. BONES/JOINTS: Minimal degenerative change of the lower lumbar spine is present. SOFT TISSUES: The soft tissues are normal. VASCULATURE: Unremarkable. No abdominal aortic aneurysm. LYMPH NODES: Unremarkable. No enlarged lymph nodes. IMPRESSION: Mild left hydroureteronephrosis is present secondary to a 5 mm left UVJ calculus. Electronically signed by: Leticia Quinn MD 09/02/2020 3:01 AM BOX FINISHER Due to temporary technical issues with the PACS/Fluency reporting system, reports are being signed by the in house radiologists without review as a courtesy to insure prompt reporting. The interpreting radiologist is fully responsible for the content of the report.
== END 2020-09-02 06:52 | disposition home or self-care (01) ==
LOC: ER 01:43
DX: N20.1 Calculus of ureter (principal)
CPT/HCPCS: 96361; 85025; 80048; 36415; 80076; 81003; 83690; 76377; 74176; 96375; 96374; 99284; J7030; J2405

== ENCOUNTER 2021-11-01 06:22 | Emergency (ER) | payer BC ==
[2021-11-01] MEDS ORDERED: METHYLPREDNISOLONE 125 MG INJ ONE (07:27)
[2021-11-01] MEDS ORDERED: METHOCARBAMOL 1,000 MG/10 ML VIAL IV ONE (07:27)
[2021-11-01] MEDS ORDERED: NA CHLORIDE 0.9% 100 ML IV ONE (07:28)
[2021-11-01] MEDS ORDERED: KETOROLAC 30 MG/ML INJ ONE (07:28)
--- NOTE | 2021-11-01 08:16 | RAD REPORT ---
EXAM DESCRIPTION: CT - Spine Lumbar Wo Con - 11/01/2021 7:52 am CLINICAL HISTORY: Radiculopathy. Low back pain, trauma COMPARISON: No comparisons TECHNIQUE: Axial noncontrast CT imaging of the lumbar spine was performed with coronal and sagittal re-formatted images. All CT scans are performed using dose optimization technique as appropriate and may include automated exposure control or mA/KV adjustment according to patient size. FINDINGS: No acute lumbar spine fracture seen. No aggressive marrow pattern or malalignment. Paraspinal tissues are normal in thickness. No paraspinal abscess or hematoma seen. Calcified posterior disc bulges are present at L4-5 and L5-S1. This results in [id number] centr al canal narrowing. Moderate posterior disc bulge with possible herniated component at L3-4. This res ults in moderate canal narrowing. IMPRESSION: No acute lumbar spine abnormality. Moderate lower lumbar spondylosis is present. Nonemergent MRI lumbar spine followup would be recommen ded.
[2021-11-01 09:11] LABS: Urine Blood Negative (Negative); Urine Glucose Negative (Negative); Urine Protein Negative (Negative); Urine Specific Gravity 1.025 (1.005-1.030)
--- NOTE | 2021-11-01 09:14 | EDPHYS ---
Physician Documentation [facility] Name: Tom Saez Age: 35 yrs Sex: Male : 1985 Arrival Date: 11/01/2021 Time: 06:34 Bed 5 Private MD: ED Physician Robert Templeton HPI: 11/01 07:13 This 35 yrs old Male presents to ER via Ambulatory with complaints of Back kdr Pain. 07:13 The patient presents with pain that is acute. The symptoms are located in the low back, kdr right low back. Onset: The symptoms/episode began/occurred suddenly, last week, 1 week(s) ago. The pain does not radiate. Associated signs and symptoms: The patient has no apparent associated signs or symptoms. The problem was sustained when bending over, from twisting. 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 He was bending over vacuuming at an odd angle when it occurred. Since then he has had ongoing back pain without significant relief from OTC medications as well as ice and heat. He has been taking ibuprofen 800 mg without significant relief. He denies any pain radiating down his legs or change in his bowel or bladder habits. Severity of symptoms: At their worst the symptoms were mild, moderate, in the emergency department the symptoms are unchanged. The patient has not experienced similar symptoms in the past. The patient has not recently seen a physician. Historical: - Allergies: 06:58 No Known Allergies; vc1 - Home Meds: 06:58 None [Active]; vc1 - PMHx: 06:58 None; vc1 - PSHx: 06:58 None; vc1 - Immunization history:: Adult Immunizations up to date, Client reports receiving the 2nd dose of the Covid vaccine, Flu vaccine is up to date. - Social history:: Smoking status: Patient denies any tobacco usage or history of. ROS: 07:13 Constitutional: Negative for fever, chills, and weight loss, Eyes: Negative for injury, kdr pain, redness, and discharge, ENT: Negative for injury, pain, and discharge, Neck: Negative for injury, pain, and swelling, Cardiovascular: Negative for chest pain, palpitations, and edema, Respiratory: Negative for shortness of breath, cough, wheezing, and pleuritic chest pain, Abdomen/GI: Negative for abdominal pain, nausea, vomiting, diarrhea, and constipation, : Negative for injury, bleeding, discharge, and swelling, MS/Extremity: Negative for injury and deformity, Skin: Negative for injury, rash, and discoloration, Neuro: Negative for headache, weakness, numbness, tingling, and seizure activity. Psych: Negative for depression, anxiety, suicide ideation, homicidal ideation, and hallucinations, Allergy/Immunology: Negative for hives, rash, and allergies, Endocrine: Negative for neck swelling, polydipsia, polyuria, polyphagia, and marked weight changes, Hematologic/Lymphatic: Negative for swollen nodes, abnormal bleeding, and unusual bruising. 07:13 Back: Positive for injury or acute deformity, decreased range of motion, pain at rest, pain with movement, of the right low back. Exam: 07:13 Constitutional: This is a well developed, well nourished patient who is awake, alert, kdr and in no acute distress. 07:13 Back: pain, that is very mild, of the right low back, ROM is painful, with all movement, normal spinal alignment noted, CVA tenderness, is absent, muscle spasm, is appreciated in the right low back. Vital Signs: 06:57 BP 131 / 67; Pulse 66; Resp 18; Temp 97.6(TE); Pulse Ox 98% on R/A; Weight 127.01 kg ll3 (R); Height 5 ft. 4 in. (162.56 cm) (R); Pain 8/10; 07:47 BP 126 / 77; Pulse 76; Resp 18 S; Pulse Ox 99% on R/A; jd3 08:39 BP 127 / 80; Pulse 75; Resp 18 S; Pulse Ox 100% on R/A; jd3 06:57 Body Mass Index 48.06 (127.01 kg, 162.56 cm) ll3 MDM: 07:13 Data reviewed: vital signs, nurses notes, radiologic studies. Counseling: I had a kdr detailed discussion with the patient and/or guardian regarding: the historical points, exam findings, and any diagnostic results supporting the discharge/admit diagnosis, radiology results, the need for outpatient follow up. 09:13 Patient medically screened. kdr 11/01 09:11 Order name: Urine Dipstick-Ancillary EDMS 11/01 07:31 Order name: CT Lumbar Spine Wo Con; Complete Time: 08:27 kdr 11/01 07:14 Order name: IV; Complete Time: 07:21 jd3 11/01 08:58 Order name: Urine Dipstick-Ancillary (obtain specimen); Complete Time: 09:17 kdr Administered Medications: 07:35 Drug: Robaxin (methocarbamol) 1 grams Route: IVPB; Infused Over: 1 hrs; Site: right j hand; 08:30 Follow up: Response: No adverse reaction; IV Status: Completed infusion jd3 07:35 Drug: Ketorolac 15 mg Route: IVP; Site: right hand; jd3 08:30 Follow up: Response: No adverse reaction jd3 07:35 Drug: SOLU-Medrol (methylPrednisoLONE) 125 mg Route: IVP; Site: right hand; jd3 08:30 Follow up: Response: No adverse reaction jd3 Disposition Summary: 11/01/21 09:13 Discharge Ordered Location: Home kdr Problem: new kdr Symptoms: have improved kdr Condition: Stable kdr Diagnosis - Low back pain kdr Followup: kdr - With: Private Physician - When: 2 - 3 days - Reason: If symptoms return, Further diagnostic work-up, Recheck today's complaints, Continuance of care, Re-evaluation by your physician Discharge Instructions: - Discharge Summary Sheet kdr - Acute Back Pain, Adult kdr - Musculoskeletal Pain kdr - Back Exercises, [id number] kdr Forms: - Medication Reconciliation Form kdr - Thank You Letter kdr - Prescription Opioid Use kdr Prescriptions: - Ibuprofen 800 mg Oral Tablet - take 1 tablet by ORAL route every 8 hours As needed take with food; 15 tablet; kdr Refills: 0, Product Selection Permitted - Cyclobenzaprine 10 mg Oral Tablet - take 1 tablet by ORAL route every 8 hours As needed; 15 tablet; Refills: 0, kdr Product Selection Permitted - Tramadol 50 mg Oral Tablet - take 1 tablet by ORAL route every 8 hours as needed; 12 tablet; Refills: 0, kdr Product Selection Permitted - Medrol (Prosper) 4 mg Oral Tablets, Dose Pack - take 1 tablet by ORAL route as directed - follow package instructions; 1 kdr packet; Refills: 0, Product Selection Permitted Signatures: Dispatcher [employer] Robert Avila MD MD kdr Joshi, Yehuda, RN RN jd3 Calcote, Janice, RN RN vc1
--- NOTE | 2021-11-01 09:14 | ER ---
Nurse's Notes [facility] Name: Tom Saez Age: 35 yrs Sex: Male : 1985 Arrival Date: 11/01/2021 Time: 06:34 Bed 5 Private MD: Diagnosis: Low back pain Presentation: 11/01 06:55 Chief complaint: Patient states: "I was detailing my car last weekend and I felt vc1 something pull in my back. It feels like a spasm.". Coronavirus screen: Vaccine status: Patient reports receiving the 2nd dose of the covid vaccine. pfizer At this time, the client does not indicate any symptoms associated with coronavirus-19. Ebola Screen: No symptoms or risks identified at this time. Onset of symptoms is unknown. 06:55 Method Of Arrival: Ambulatory vc1 06:55 Acuity: APOLLO 4 vc1 07:22 Acuity: APOLLO 3 iw 07:37 Initial Sepsis Screen: Does the patient meet any 2 criteria? No. Patient's initial jd3 sepsis screen is negative. Does the patient have a suspected source of infection? No. Patient's initial sepsis screen is negative. Risk Assessment: Do you want to hurt yourself or someone else? Patient reports no desire to harm self or others. Triage Assessment: 06:58 General: Appears in no apparent distress. uncomfortable, Behavior is calm, cooperative, vc1 appropriate for age. Pain: Complains of pain in lumbar area, left mid back and right mid back Pain does not radiate. Pain currently is 9 out of 10 on a pain scale. Quality of pain is described as pressure. Musculoskeletal: Circulation, motion, and sensation intact. Capillary refill Range of motion: intact in all extremities, Reports pain in lumbar area, left mid back and right mid back. Historical: - Allergies: 06:58 No Known Allergies; vc1 - Home Meds: 06:58 None [Active]; vc1 - PMHx: 06:58 None; vc1 - PSHx: 06:58 None; vc1 - Immunization history:: Adult Immunizations up to date, Client reports receiving the 2nd dose of the Covid vaccine, Flu vaccine is up to date. - Social history:: Smoking status: Patient denies any tobacco usage or history of. Screenin:37 Abuse screen: Denies threats or abuse. Nutritional screening: No deficits noted. jd3 Tuberculosis screening: No symptoms or risk factors identified. Fall Risk Ambulatory Aid- None/Bed Rest/Nurse Assist (0 pts). Gait- Normal/Bed Rest/Wheelchair (0 pts) Mental Status- Oriented to own ability (0 pts). Total Le Fall Scale indicates No Risk (0-24 pts). Assessment: 07:35 General: Appears in no apparent distress. comfortable, Behavior is calm, cooperative, jd3 appropriate for age. Pain: Complains of pain in low back area and mid back area Quality of pain is described as shooting, squeezing, tender. Neuro: Level of Consciousness is awake, alert, obeys commands, Oriented to person, place, time, situation, Denies weakness numbness. Cardiovascular: Capillary refill < 3 seconds Patient's skin is warm and dry. Respiratory: Airway is patent Respiratory effort is even, unlabored, Respiratory pattern is regular, symmetrical, Denies cough, shortness of breath. GI: No signs and/or symptoms were reported involving the gastrointestinal system. : No signs and/or symptoms were reported regarding the genitourinary system. EENT: No signs and/or symptoms were reported regarding the EENT system. Derm: Skin is intact, Skin is dry, Skin is normal, Skin temperature is warm. Musculoskeletal: Circulation, motion, and sensation intact. Range of motion: intact in all extremities. 08:38 Reassessment: Patient appears in no apparent distress at this time. No changes from jd3 previously documented assessment. Patient and/or family updated on plan of care and expected duration. Pain level reassessed. Patient is alert, oriented x 3, equal unlabored respirations, skin warm/dry/pink. pt reported no change in back pain after medications. provider notified. 09:28 Reassessment: Patient appears in no apparent distress at this time. Patient and/or jd3 family updated on plan of care and expected duration. Pain level reassessed. Patient is alert, oriented x 3, equal unlabored respirations, skin warm/dry/pink. even and steady gait upon discharge to [facility]. Vital Signs: 06:57 BP 131 / 67; Pulse 66; Resp 18; Temp 97.6(TE); Pulse Ox 98% on R/A; Weight 127.01 kg ll3 (R); Height 5 ft. 4 in. (162.56 cm) (R); Pain 8/10; 07:47 BP 126 / 77; Pulse 76; Resp 18 S; Pulse Ox 99% on R/A; jd3 08:39 BP 127 / 80; Pulse 75; Resp 18 S; Pulse Ox 100% on R/A; jd3 06:57 Body Mass Index 48.06 (127.01 kg, 162.56 cm) ll3 ED Course: 06:34 Patient arrived in ED. kz 06:58 Triage completed. vc1 06:58 April Burger, RN is Primary Nurse. ke1 06:58 Arm band placed on right wrist. vc1 07:02 Robert Templeton MD is Attending Physician. kdr 07:06 Primary Nurse role handed off by April Burger RN jd3 07:06 Yehuda Joshi RN is Primary Nurse. jd3 07:35 Inserted saline lock: 22 gauge in right hand, using aseptic technique. jd3 07:37 Patient has correct armband on for positive identification. Bed in low position. Call jd3 light in reach. Side rails up X 1. Adult w/ patient. Pulse ox on. NIBP on. 07:53 CT Lumbar Spine Wo Con In Process Unspecified. EDMS 09:28 No provider procedures requiring assistance completed. IV discontinued, intact, jd3 bleeding controlled, No redness/swelling at site. Pressure dressing applied. Administered Medications: 07:35 Drug: Robaxin (methocarbamol) 1 grams Route: IVPB; Infused Over: 1 hrs; Site: right jd3 hand; 08:30 Follow up: Response: No adverse reaction; IV Status: Completed infusion jd3 07:35 Drug: Ketorolac 15 mg Route: IVP; Site: right hand; jd3 08:30 Follow up: Response: No adverse reaction jd3 07:35 Drug: SOLU-Medrol (methylPrednisoLONE) 125 mg Route: IVP; Site: right hand; jd3 08:30 Follow up: Response: No adverse reaction jd3 Outcome: 09:13 Discharge ordered by . kdr 09:28 Discharged to home ambulatory, with family. jd3 09:28 Condition: stable 09:28 Discharge instructions given to patient, Instructed on discharge instructions, follow up and referral plans. medication usage, Demonstrated understanding of instructions, follow-up care, medications, Prescriptions given X 4. 09:29 Patient left the ED. jd3 Signatures: Dispatcher [employer] EDMS Robert Templeton MD MD kdr Williams, Irene RN Yehuda Diaz RN RN jd3 Fernando Klein RN RN ll3 Janice Rubio RN RN vc1 April Burger RN RN ke1 Jillian Hurley
[2021-11-01 09:35] VITALS: TEMP 97.6
[2021-11-01 09:38] VITALS: BP 127/80; O2SAT 100
== END 2021-11-01 09:29 | disposition home or self-care (01) ==
LOC: ER 06:22
DX: M54.50 Low back pain, unspecified (principal)
CPT/HCPCS: 96365; 81003; 72131; 96375; 99284; J2930; J2800